=== PATIENT | female | born 1955 | race African-American/Black ===

== ENCOUNTER 2016-11-27 00:16 | Inpatient (IN) | payer OTHER ==
--- NOTE | 2016-11-27 00:57 | PDOC ---
History of Present Illness - General History Source: Patient <Jose Jose - Last Filed: 11/27/16 05:01> - General History Source: Patient Exam Limitations: No Limitations - History of Present Illness Initial Comments: 11/27/16 01:08 The patient is a 61 year old female with significant past medical history of anemia, mitral valve prolapse, and seizures who presents to the ED for less than 24 hours of abdominal pain. Patient reports eating chipotle around 1pm and subsequently developed pain to the epigastric area with associated nausea, but no vomiting or diarrhea. The patient denies fever, chills, cough, SOB, chest pain, and palpitations. Allergies: NKDA Social History: No alcohol, tobacco, or drug use reported. Past Surgical History: L rotator cuff repair PCP: Dr. Trupti Womack <Phyllis Tidwell - Last Filed: 11/27/16 05:03> - General Chief Complaint: Pain Stated Complaint: CHEST PAIN Time Seen by Provider: 11/27/16 00:48 Past History - Past Medical History Anemia: Yes (PERNICIOUS) Cardiac Disorders: Yes (MVP) GI Disorders: Yes (HIATAL HERNIA) Seizures: Yes (02/2010) - Surgical History Orthopedic Surgery: Yes (LT ROTATOR CUFF 06/2014) - Immunization History Immunization Up to Date: Yes - Psycho/Social/Smoking Cessation Hx Anxiety: No Suicidal Ideation: No Smoking History: Never smoked Have you smoked in the past 12 months: No Information on smoking cessation initiated: No Hx Alcohol Use: No Drug/Substance Use Hx: No Substance Use Type: None <Jose Jose - Last Filed: 11/27/16 05:01> <Phyllis Tidwell - Last Filed: 11/27/16 05:03> - Past Medical History Allergies/Adverse Reactions: Allergies Allergy/AdvReac Type Severity Reaction Status Date / Time No Known Allergies Allergy Verified 11/27/16 00:46 Home Medications: Ambulatory Orders Ondansetron [Zofran *Odt*] 4 mg SL TID #30 od.tablet 11/27/16 Oxycodone HCl/Acetaminophen [Percocet 5-325 mg Tablet] 1 - 2 tab PO Q6H #20 tablet MDD 4 11/27/16 Pantoprazole Sodium [Protonix] 40 mg PO DAILY #30 tablet. 11/27/16 Review of Systems - Review of Systems Able to Perform ROS?: Yes Comments:: 11/27/16 01:08 CONSTITUTIONAL: Absent: fever, no chills, no fatigue EYES: Absent: visual changes ENT: Absent: ear pain, no sore throat CARDIOVASCULAR: Absent: chest pain, no palpitations RESPIRATORY: Absent: cough, no SOB GI: +epigastric pain, nausea Absent: no vomiting, no constipation, no diarrhea GENITOURINARY: Absent: dysuria, no frequency, no hematuria MUSCULOSKELETAL: Absent: back pain, no arthralgia, no myalgia SKIN: Absent: rash NEURO: Absent: headache <Phyllis Tidwell - Last Filed: 11/27/16 05:03> *Physical Exam - Vital Signs Last Vital Signs Temp Pulse Resp BP Pulse Ox 97.5 F L 80 18 159/74 98 11/27/16 00:46 11/27/16 00:46 11/27/16 00:46 11/27/16 00:46 11/27/16 00:46 <Jose Jose - Last Filed: 11/27/16 05:01> - Vital Signs Last Vital Signs Temp Pulse Resp BP Pulse Ox 97.5 F L 80 18 159/74 98 11/27/16 00:46 11/27/16 00:46 11/27/16 00:46 11/27/16 00:46 11/27/16 00:46 - Physical Exam Comments: 11/27/16 01:08 GENERAL: Well-appearing, well-nourished. Moderate distress. HEENT: Normocephalic, atraumatic. PERRL, EOM intact. CARDIOVASCULAR: Normal S1, S2. Regular rate and rhythm. PULMONARY: Clear to auscultation bilaterally. ABDOMEN: Soft, non-distended, non-tender. EXTREMITIES: Normal ROM in all four extremities. No gross deformities. SKIN: Warm, dry. No rash NEUROLOGICAL: No focal neurological deficits. <Phyllis Tidwell - Last Filed: 11/27/16 05:03> Heart Score/ECG Review - ECG Impressions Comment:: 11/27/16 01:08 NSR @79bpm Possible L atrial enlargement L ventricular hypertrophy Prolonged QT Abnormal ECG <Phyllis Tidwell - Last Filed: 11/27/16 05:03> ED Treatment Course - LABORATORY CBC & Chemistry Diagram: 11/27/16 02:03 11/27/16 02:03 <Jose Jose - Last Filed: 11/27/16 05:01> - LABORATORY CBC & Chemistry Diagram: 11/27/16 02:03 11/27/16 02:03 - RADIOLOGY Radiograph Interpretation: 11/27/16 05:02 EXAM: CT abdomen and pelvis without contrast Reviewed by Imaging ironworker: FINDINGS: Lung bases are clear. The visualized cardiac chambers are normal size and configuration. Gallbladder is distended and contains multiple stones, including an 8 mm stone in the cystic duct. There may be mild pericholecystic edema and cholecystitis is suspected. No biliary duct dilation. Normal unenhanced liver, pancreas, spleen, adrenal glands and kidneys. The stomach and abdominal small and large bowel are normal. There is no aortic aneurysm. There is no significant retroperitoneal lymphadenopathy. The pelvic small and large bowel are normal. The appendix is normal. The uterus and adnexal structures are normal. Urinary bladder is unremarkable. There is no pelvic free fluid. No discrete pelvic lymphadenopathy is identified. IMPRESSION: Suspected acute cholecystitis secondary to an 8 mm cystic duct stone. <Phyllis Tidwell - Last Filed: 11/27/16 05:03> Medical Decision Making - Medical Decision Making 11/27/16 02:55 Dr. Jose: The scribe's documentation has been prepared under my direction and personally reviewed by me in its entirery. I confirm that the note above accurately reflects all work, treatment, procedures, and medical decision making performed by me. 11/27/16 05:01 patient found to have acute cholecystitis on abdomen pelvis CAT scan. Will admit to [facility]. <Jose Jose - Last Filed: 11/27/16 05:01> *DC/Admit/Observation/Transfer - Discharge Dispostion Admit: Yes <Jose Jose - Last Filed: 11/27/16 05:01> - Attestations Scribe Attestion: 11/27/16 01:08 Documentation prepared by Phyllis Tidwell, acting as medical surgery nurse for Jose Jose MD/DO. <Phyllis Tidwell - Last Filed: 11/27/16 05:03> Diagnosis at time of Disposition: Acute cholecystitis - Prescriptions Prescriptions: Oxycodone HCl/Acetaminophen [Percocet 5-325 mg Tablet] 1 - 2 tab PO Q6H #20 tablet MDD 4 Pantoprazole Sodium [Protonix] 40 mg PO DAILY #30 tablet. Ondansetron [Zofran *Odt*] 4 mg SL TID #30 od.tablet - Referrals Referrals: Sarah Womack [Primary Care Provider] -
[2016-11-27] MEDS ORDERED: KETOROLAC TROMETHAMINE 30 MG/1 ML VIAL IVPUSH ONE (00:58)
[2016-11-27] MEDS ORDERED: PANTOPRAZOLE SODIUM 40 MG in SODIUM CHLORIDE 100 ML IVPB ONE (00:58)
[2016-11-27] MEDS ORDERED: ONDANSETRON 4 MG/2 ML VIAL IVPUSH STA ×2 (00:58→03:00)
[2016-11-27] MEDS ORDERED: SODIUM CHLORIDE 1,000 ML IV STA (00:58)
[2016-11-27] MEDS ORDERED: KETOROLAC TROMETHAMINE 30 MG/1 ML VIAL ONE (01:51)
[2016-11-27] MEDS ORDERED: ONDANSETRON 4 MG/2 ML VIAL ONE ×2 (01:51→03:04)
[2016-11-27] MEDS ORDERED: PANTOPRAZOLE SODIUM 100 ML IVPB ONE (01:51)
[2016-11-27 02:10] LABS: BASOPHIL 0.3 % (0-2.0); EOSINOPHIL 0.2 % (0-4.5); MCH 30.9 pg (25.7-33.7); MEAN CELL VOLUME 96.6 fl (80-96); MEAN PLT VOLUME 9.8 fl (7.5-11.1); NEUTROPHILS 84.3 % (42.8-82.8); PLATELET COUNT 228 K/MM3 (134-434); RDW 14.9 % (11.6-15.6); WHITE BLOOD COUNT 6.3 K/mm3 (4.0-10.0)
[2016-11-27 02:26] LABS: PLATELET COMMENT2 NO CLUMPING NOTED; PLATELET COMMENT3 NO CLOTTING DETECTED; PLATELET ESTIMATE ADEQUATE (NORMAL)
[2016-11-27 02:39] LABS: ALBUMIN 3.7 g/dl (3.4-5.0); AMYLASE 23 U/L (25-115); ANION GAP 13 (8-16); BILIRUBIN,TOTAL 0.7 mg/dL (0.2-1.0); CO2 24 mmol/L (21-32); CREATININE 0.6 mg/dL (0.55-1.02); GLUCOSE,RANDOM 104 mg/dL (74-106); SGOT/AST 59 U/L (15-37); SGPT/ALT 126 U/L (12-78); TOT PROT 7.8 g/dl (6.4-8.2)
[2016-11-27 02:42] LABS: ALK PHOS 136 U/L (45-117); TROPONIN I < 0.02 ng/ml (0.00-0.05)
[2016-11-27 02:53] LABS: MAGNESIUM 2.3 mg/dL (1.8-2.4)
[2016-11-27] MEDS ORDERED: morphine CARPU-JECT 2 MG/1 ML DISP.SYRIN IVPUSH ONE ×3 (03:00→04:57)
[2016-11-27] MEDS ORDERED: morphine CARPU-JECT 2 MG/1 ML DISP.SYRIN ONE (03:03)
[2016-11-27 03:08] LABS: URINE APPEARANCE CLEAR; URINE BILIRUBIN NEGATIVE (NEGATIVE); URINE COLOR YELLOW; URINE GLUCOSE (UA) NEGATIVE (NEGATIVE); URINE KETONE 2+ (NEGATIVE); URINE NITRITE NEGATIVE (NEGATIVE); URINE PROTEIN NEGATIVE (NEGATIVE); URINE UROBILINOGEN 4.0 E.U/dl E.U./dl (0.2-1.0)
[2016-11-27 03:10] LABS: URINE BLOOD 1+ (NEGATIVE); URINE LEUK ESTERASE 1+ (NEGATIVE)
[2016-11-27 03:14] LABS: URINE BACTERIA RARE /hpf (NONE SEEN); URINE MUCUS RARE; URINE RBC 8 /hpf (0-3); URINE WBC 8 /hpf (3-5)
[2016-11-27] MEDS ORDERED: morphine CARPU-JECT 4 MG/1 ML DISP.SYRIN ONE ×2 (03:41→05:03)
[2016-11-27] MEDS ORDERED: METRONIDAZOLE 500 MG PREMIXED 100 ML IVPB ONE ×2 (04:58→05:03)
[2016-11-27] MEDS ORDERED: LEVOFLOXACIN 500 MG IVPB 100 ML IVPB ONE ×2 (04:58→05:03)
--- NOTE | 2016-11-27 05:16 | PN ---
Teaching Attending Note Name of Resident: Angel Crawford ATTENDING PHYSICIAN STATEMENT I saw and evaluated the patient. I reviewed the resident's note and discussed the case with the resident. I agree with the resident's findings and plan as documented. SUBJECTIVE: 61 yo F with pmhx of anemia, MVP, and seizures presents with abdominal pain. States she is occasionally nausaus, no vomiting or diarrhea. No chest pain, pressure or shortness of breath. OBJECTIVE: Physical: VS: Vital Signs Period Temp Pulse Resp BP Sys/Tucker Pulse Ox Last 24 Hr 97.5 F 80 18 159/74 98 GEN: NAD, Resting in bed HEENT: NCAT, PERRL CARD: RRR S1, S2 RESP: CTAB ABD: BSX4, ntd to palpation EXT: - C/C/E CBCD WBC 6.3 K/mm3 (4.0-10.0) 11/27/16 02:03 RBC 4.06 M/mm3 (3.60-5.2) 11/27/16 02:03 Hgb 12.5 GM/dL (10.7-15.3) 11/27/16 02:03 Hct 39.2 % (32.4-45.2) 11/27/16 02:03 MCV 96.6 fl (80-96) H 11/27/16 02:03 MCHC 32.0 g/dl (32.0-36.0) 11/27/16 02:03 RDW 14.9 % (11.6-15.6) 11/27/16 02:03 Plt Count 228 K/MM3 (134-434) 11/27/16 02:03 MPV 9.8 fl (7.5-11.1) 11/27/16 02:03 CMP Sodium 142 mmol/L (136-145) 11/27/16 02:03 Potassium 3.8 mmol/L (3.5-5.1) 11/27/16 02:03 Chloride 105 mmol/L (98-107) 11/27/16 02:03 Carbon Dioxide 24 mmol/L (21-32) 11/27/16 02:03 Anion Gap 13 (8-16) 11/27/16 02:03 BUN 10 mg/dL (7-18) 11/27/16 02:03 Creatinine 0.6 mg/dL (0.55-1.02) 11/27/16 02:03 Creat Clearance w eGFR > 60 (>60) 11/27/16 02:03 Random Glucose 104 mg/dL (74-106) 11/27/16 02:03 Calcium 9.0 mg/dL (8.5-10.1) 11/27/16 02:03 Total Bilirubin 0.7 mg/dL (0.2-1.0) 11/27/16 02:03 AST 59 U/L (15-37) H 11/27/16 02:03 ALT 126 U/L (12-78) H 11/27/16 02:03 Alkaline Phosphatase 136 U/L (45-117) H 11/27/16 02:03 Total Protein 7.8 g/dl (6.4-8.2) 11/27/16 02:03 Albumin 3.7 g/dl (3.4-5.0) 11/27/16 02:03 CARDIAC ENZYMES Creatine Kinase 156 IU/L (26-192) 11/27/16 02:03 Troponin I < 0.02 ng/ml (0.00-0.05) 11/27/16 02:03 CT ABD/PELVIS: Acute Choleycystitis 8 mm stone ASSESSMENT AND PLAN: 61 yo F with pmhx of Seizures, pernicous anemia, and MVP presents with abdominal pain, found to have increased lefts and acute choley with 8mm cystic stone on CT 1.) Acute Choleycystitis- Choledcholithiasis - NPO - IVF/Pain control - Type and Screen - Coags - C/W abx Levaquin/Fagyl (received in ED)-would switch to Ceftriaxone in light of mildly increased Qtc - Cx - Consider MRCP in light of elevated LFts - Sx. Consult 2.) Transaminitis - MRCP 3.) DVt Ppz - Low Risk- SCDs Place in Med-Sx
--- NOTE | 2016-11-27 05:50 | HP ---
CHIEF COMPLAINT: abdominal pain PCP: Sarah Womack HISTORY OF PRESENT ILLNESS: 61 y/o F w/PMH of anemia, mitral valve prolapse, seizures presents to ER w/ c/o abdominal pain. Pain is located in epigastric region, radiates to LUQ, was sudden in onset after eating chipotle and frozen yogurt for lunch. Pain was 10/ 10, constant, w/no alleviating factors, associated with nausea, vomiting (4 episodes, non-bloody, non-bilious), chills. This is the first time pt has had this type of pain. Pt states approximately 5 years ago on routine physical exam/ blood work she was told she may have gallstones but no work up was required at that time. She denies fevers, chest pain, cough, diarrhea, peripheral swelling, sick contacts, recent travel. ER course was notable for: (1) levaquin, metronidazole, zofran, ct abd/pelvis (2) (3) Recent Travel: denies PAST MEDICAL HISTORY: anemia, mitral valve prolapse, seizures PAST SURGICAL HISTORY: 2 c-sections, L rotator cuff repair Social History: Smoking: denies Alcohol: denies Drugs: denies Family History: non-contributory Allergies No Known Allergies Allergy (Verified 11/27/16 00:46) HOME MEDICATIONS: Home Medications Medication Instructions Recorded Ondansetron [Zofran *Odt*] 4 mg SL TID #30 od.tablet 11/27/16 Oxycodone HCl/Acetaminophen 1 - 2 tab PO Q6H #20 tablet MDD 4 11/27/16 [Percocet 5-325 mg Tablet] Pantoprazole Sodium [Protonix] 40 mg PO DAILY #30 tablet. 11/27/16 REVIEW OF SYSTEMS CONSTITUTIONAL: +chills Absent: fever, diaphoresis, generalized weakness CARDIOVASCULAR: Absent: chest pain, syncope, palpitations, irregular heart rate, peripheral edema RESPIRATORY: Absent: cough, shortness of breath, dyspnea with exertion GASTROINTESTINAL: +abdominal pain, nausea, vomiting Absent: abdominal distension, diarrhea, constipation, melena, hematochezia GENITOURINARY: Absent: dysuria, frequency MUSCULOSKELETAL: Absent: myalgia, arthralgia, joint swelling, back pain, neck pain NEUROLOGIC: +lightheadedness Absent: headache, focal weakness or paresthesias, mental status changes PSYCHIATRIC: Absent: anxiety, depression PHYSICAL EXAMINATION Vital Signs - 24 hr 11/27/16 00:46 Temperature 97.5 F L Pulse Rate 80 Respiratory 18 Rate Blood Pressure 159/74 O2 Sat by Pulse 98 Oximetry (%) GENERAL: Awake, alert, and fully oriented, in no acute distress. HEAD: Normal with no signs of trauma. EYES:extraocular movements intact, sclera anicteric, conjunctiva clear. No lid lag. EARS, NOSE, THROAT: Ears normal, nares patent NECK: Normal range of motion, supple without lymphadenopathy LUNGS: Breath sounds equal, clear to auscultation bilaterally. No wheezes, and no crackles. No accessory muscle use. HEART: Regular rate and rhythm, normal S1 and S2 without murmur, rub or gallop. ABDOMEN: +RUQ tenderness, +murphys sign, Soft, not distended, normoactive bowel sounds, no guarding, no rebound, no masses. MUSCULOSKELETAL: No bony deformities. No CVA tenderness. LOWER EXTREMITIES: warm, well-perfused. No calf tenderness. No peripheral edema. NEUROLOGICAL: Normal speech. Gait not observed. PSYCHIATRIC: Cooperative. Good eye contact. Appropriate mood and affect. SKIN: Warm, dry, normal turgor Laboratory Results - last 24 hr 11/27/16 11/27/16 11/27/16 02:03 02:03 02:03 WBC 6.3 RBC 4.06 Hgb 12.5 Hct 39.2 MCV 96.6 H MCHC 32.0 RDW 14.9 Plt Count 228 MPV 9.8 Neutrophils % 84.3 H Lymphocytes % 12.6 Monocytes % 2.6 L Eosinophils % 0.2 Basophils % 0.3 Platelet Estimate Adequate Platelet Comment No clumping noted INR 1.00 Sodium 142 Potassium 3.8 Chloride 105 Carbon Dioxide 24 Anion Gap 13 BUN 10 Creatinine 0.6 Creat Clearance w eGFR > 60 Random Glucose 104 Calcium 9.0 Magnesium Total Bilirubin 0.7 AST 59 H ALT 126 H Alkaline Phosphatase 136 H Creatine Kinase 156 CK-MB (CK-2) 1.694 Troponin I < 0.02 Total Protein 7.8 Albumin 3.7 Total Amylase 23 L Lipase Urine Color Urine Appearance Urine pH Urine Protein Urine Glucose (UA) Urine Ketones Urine Blood Urine Nitrite Urine Bilirubin Urine Urobilinogen Ur Leukocyte Esterase Urine RBC Urine WBC Ur Epithelial Cells Urine Bacteria Urine Mucus 11/27/16 11/27/16 02:03 03:00 WBC RBC Hgb Hct MCV MCHC RDW Plt Count MPV Neutrophils % Lymphocytes % Monocytes % Eosinophils % Basophils % Platelet Estimate Platelet Comment INR Sodium Potassium Chloride Carbon Dioxide Anion Gap BUN Creatinine Creat Clearance w eGFR Random Glucose Calcium Magnesium 2.3 Total Bilirubin AST ALT Alkaline Phosphatase Creatine Kinase CK-MB (CK-2) Troponin I Total Protein Albumin Total Amylase Lipase 94 Urine Color Yellow Urine Appearance Clear Urine pH 6.0 Urine Protein Negative Urine Glucose (UA) Negative Urine Ketones 2+ H Urine Blood 1+ H Urine Nitrite Negative Urine Bilirubin Negative Urine Urobilinogen 4.0 e.u/dl H Ur Leukocyte Esterase 1+ H Urine RBC 8 Urine WBC 8 Ur Epithelial Cells Rare Urine Bacteria Rare Urine Mucus Rare EKG: NSR @ 79 bpm. Possible L atrial enlargement. LVH. Prolonged QTc 481. Imaging: EXAM: CT abdomen and pelvis without contrast Reviewed by Imaging sec reporting consultant: FINDINGS: Lung bases are clear. The visualized cardiac chambers are normal size and configuration. Gallbladder is distended and contains multiple stones, including an 8 mm stone in the cystic duct. There may be mild pericholecystic edema and cholecystitis is suspected. No biliary duct dilation. Normal unenhanced liver, pancreas, spleen, adrenal glands and kidneys. The stomach and abdominal small and large bowel are normal. There is no aortic aneurysm. There is no significant retroperitoneal lymphadenopathy. The pelvic small and large bowel are normal. The appendix is normal. The uterus and adnexal structures are normal. Urinary bladder is unremarkable. There is no pelvic free fluid. No discrete pelvic lymphadenopathy is identified. IMPRESSION: Suspected acute cholecystitis secondary to an 8 mm cystic duct stone. ASSESSMENT/PLAN: 61 y/o F w/PMH of anemia, mitral valve prolapse, seizures presents to ER w/ c/o abdominal pain. Found to have acute cholecystitis secondary to 8 mm cystic duct stone. -Acute cholecystitis -NPO, NS @ 125 ml/hr -Pain control with morphine 2mg q6h PRN -Nausea control with compazine 10 mg IV q8h PRN (pt with prolonged QTc) -metronidazole 500 mg iv q8h -ceftriaxone 1g qd starting tomorrow, as pt on levaquin at this time (will also change due to prolonged QTc) -GI consulted -Surgery consulted -consider MRCP -monitor LFTs, elevated at this time -Transaminitis -monitor, elevated at this time -secondary to acute cholecystitis -consider MRCP -Hx of anemia -Hgb 12.5, monitor -DVT ppx -SCDs -FEN -NS @ 125 ml/hr -electrolytes wnl -NPO -Dispo: -Admit to m/s Visit type - Emergency Visit Emergency Visit: Yes ED Registration Date: 11/27/16 Care time: The patient presented to the Emergency Department on the above date and was hospitalized for further evaluation of their emergent condition. - New Patient This patient is new to me today: Yes Date on this admission: 12/02/16 - Critical Care Critical Care patient: No
[2016-11-27] MEDS ORDERED: morphine CARPU-JECT 4 MG/1 ML DISP.SYRIN IVPUSH PRN (06:14)
[2016-11-27] MEDS: SODIUM CHLORIDE 1,000 ML IV SCH ×2 (07:25→17:14)
[2016-11-27] MEDS: PROCHLORPERAZINE INJECTION 10 MG/2 ML VIAL IVPB PRN ×2 (07:56→19:03)
[2016-11-27] MEDS: METRONIDAZOLE 500 MG PREMIXED 100 ML IVPB SCH ×2 (11:20→19:42)
--- NOTE | 2016-11-27 12:35 | EKG ---
Test Reason : Blood Pressure : / mmHG Vent. Rate : 079 BPM Atrial Rate : 079 BPM P-R Int : 142 ms QRS Dur : 088 ms QT Int : 420 ms P-R-T Axes : 075 051 035 degrees QTc Int : 481 ms NORMAL SINUS RHYTHM POSSIBLE LEFT ATRIAL ENLARGEMENT LEFT VENTRICULAR HYPERTROPHY PROLONGED QT ABNORMAL ECG WHEN COMPARED WITH ECG OF 16-AUG-2015 10:31, NO SIGNIFICANT CHANGE WAS FOUND Confirmed by ARNALDO GIL, MARK ([id number]) on 11/27/2016 12:35:15 PM Referred By: Confirmed By:MARK MCINTOSH MD
--- NOTE | 2016-11-27 14:02 | PN ---
Teaching Attending Note Name of Resident: Louie Pires ATTENDING PHYSICIAN STATEMENT I saw and evaluated the patient. I reviewed the resident's note and discussed the case with the resident. I agree with the resident's findings and plan as documented. SUBJECTIVE: Patient complains of RUQ abdominal pain. She denies fever, chills, nausea. OBJECTIVE: Vital Signs Period Temp Pulse Resp BP Sys/Tucker Pulse Ox Last 24 Hr 97.5 F-98.1 F 80-88 18-18 107-159/56-74 97-99 HEART: S1S2, RRR LUNGS: Clear ABDOMEN: Obese, soft, non-distended, (+) RUQ tenderness, normal BS EXTREMITIES: No edema ASSESSMENT AND PLAN: This is a 61 year old woman with a history of seizures, pernicious anemia, MVP who presented to the ER with abdominal pain. 1. Acute choleycystitis - Continue NPO, IVF, Rocephin, Flagyl, morphine as needed for pain, Compazine as needed for nausea - AST, ALT, alk phos improving - Awaiting GI and surgery consults 2. Hepatic transaminitis - Likely secondary to acute cholecystitis - Improving - MRCP ordered
[2016-11-27] MEDS: morphine CARPU-JECT 4 MG/1 ML DISP.SYRIN IVPUSH PRN ×2 (14:26→18:33)
[2016-11-27 14:36] VITALS: BMI 32.5
--- NOTE | 2016-11-27 15:29 | PN ---
Physical Exam: SUBJECTIVE: Constant epigastric pain but improved after morphine a while ago. She stated pain is coming back and asking for morphine. No acute event overnight. OBJECTIVE: Vital Signs Period Temp Pulse Resp BP Sys/Tucker Pulse Ox Last 24 Hr 97.5 F-98.1 F 81-88 18-18 107-120/56-59 97-99 GENERAL: AAO x 3 in no acute distress. LUNGS: CTAB HEART: RRR, S1, S2 without murmur, rub or gallop. ABDOMEN: Soft, epigastric tenderness, nondistended, normoactive bowel sounds, no guarding, no rebound, +artis's sign EXTREMITIES: no edema. CBCD WBC 6.3 K/mm3 (4.0-10.0) 11/27/16 02:03 RBC 4.06 M/mm3 (3.60-5.2) 11/27/16 02:03 Hgb 12.5 GM/dL (10.7-15.3) 11/27/16 02:03 Hct 39.2 % (32.4-45.2) 11/27/16 02:03 MCV 96.6 fl (80-96) H 11/27/16 02:03 MCHC 32.0 g/dl (32.0-36.0) 11/27/16 02:03 RDW 14.9 % (11.6-15.6) 11/27/16 02:03 Plt Count 228 K/MM3 (134-434) 11/27/16 02:03 MPV 9.8 fl (7.5-11.1) 11/27/16 02:03 CMP Sodium 142 mmol/L (136-145) 11/27/16 02:03 Potassium 3.8 mmol/L (3.5-5.1) 11/27/16 02:03 Chloride 105 mmol/L (98-107) 11/27/16 02:03 Carbon Dioxide 24 mmol/L (21-32) 11/27/16 02:03 Anion Gap 13 (8-16) 11/27/16 02:03 BUN 10 mg/dL (7-18) 11/27/16 02:03 Creatinine 0.6 mg/dL (0.55-1.02) 11/27/16 02:03 Creat Clearance w eGFR > 60 (>60) 11/27/16 02:03 Calcium 9.0 mg/dL (8.5-10.1) 11/27/16 02:03 Total Bilirubin 0.7 mg/dL (0.2-1.0) 11/27/16 02:03 AST 59 U/L (15-37) H 11/27/16 02:03 ALT 126 U/L (12-78) H 11/27/16 02:03 Alkaline Phosphatase 136 U/L (45-117) H 11/27/16 02:03 Total Protein 7.8 g/dl (6.4-8.2) 11/27/16 02:03 Albumin 3.7 g/dl (3.4-5.0) 11/27/16 02:03 Intake & Output 11/24/16 11/25/16 11/26/16 11/27/16 23:59 23:59 23:59 23:59 Weight 90.276 kg Active Medications Generic Name Dose Route Start Last Admin Trade Name Freq PRN Reason Stop Dose Admin Ceftriaxone Sodium 50 mls @ 100 mls/hr 11/28/16 10:00 Rocephin 1gm Ivpb (Pre-Docked) IVPB DAILY TOM Metronidazole 100 mls @ 100 mls/hr 11/27/16 10:00 11/27/16 11:20 Flagyl 500mg Premixed Ivpb - IVPB 100 mls/hr Q8H-IV TOM Administration Sodium Chloride 1,000 mls @ 125 mls/hr 11/27/16 06:15 11/27/16 07:25 Normal Saline - IV 125 mls/hr ASDIR TOM Administration Morphine Sulfate 2 mg 11/27/16 13:57 11/27/16 14:26 Morphine Injection - IVPUSH 2 mg Q4H PRN Administration PAIN Prochlorperazine Edisylate 10 mg 11/27/16 06:24 11/27/16 07:56 Compazine Injection - IVPB 10 mg Q8H PRN Administration NAUSEA AND/OR VOMITING IMAGING CT abd on 11/27: gallbladder stones and possible acute cholecystitis CXR on 11/27: no acute pathology ASSESSMENT/PLAN: 61 yo F admitted to med-surg for acute cholecysitis r/o choledoliathesis. Acute calculous cholecystitis, uncomplicated - Mild-moderate community acquired acute cholecystitis - Received flagyl + levaquin in ED - On flagyl + ceftriaxone * would de-escalade to cefazolin only - NPO, IV fluids, correct lytes as needed - Morphine 2mg Q4H PRN for pain control - Surgery onboard Transaminitis - AST, ALT, alko phos mildly elevated - Suspected CBD pathology - f/u MRCP * if CBD obstruction, ERCP before cholecystectomy FEN -NS @ 125 ml/hr -Normal lytes -NPO Prophylaxis - DVT: SCDs - GI: not indicated Dispo - Cholecystectomy scheduled on Friday if no CBD pathology and transaminitis resolves Visit type - Emergency Visit Emergency Visit: No - New Patient This patient is new to me today: No - Critical Care Critical Care patient: No
--- NOTE | 2016-11-27 16:36 | PN ---
Progress Note (short form) - Note Progress Note: Consult dictated 61F with suspected acute cholecystitis Suspect LFT abnormality secondary to acute cholecystitis with cystic duct obstruction IV Abx NPO Surgical evaluation MRCP ordered. If rising bilirubin suggestive of CBD obstruction / MRCP findings suggestive of choledocholithiasis, ERCP prior to EGD
[2016-11-27 17:41] LABS: BASOPHIL 0.3 % (0-2.0); MCHC 31.7 g/dl (32.0-36.0); MEAN CELL VOLUME 97.8 fl (80-96); MEAN PLT VOLUME 9.1 fl (7.5-11.1); NEUTROPHILS 83.5 % (42.8-82.8); PLATELET COUNT 232 K/MM3 (134-434); RDW 15.6 % (11.6-15.6); WHITE BLOOD COUNT 8.3 K/mm3 (4.0-10.0)
--- NOTE | 2016-11-27 17:44 | PN ---
Progress Note (short form) - Note Progress Note: surgery pt seen and examined this afternoon. full consult dictated. 61f presents with epigastric pain, vomiting since yesterday after eating chipoltle. found to have multiple gallstones on CT with one at the neck of gb. ast, alt, and alk phos mildly elevated. On exam abd is soft, nt. wbc wbl. Plan- acute cholecystitis vs choledocholithiasis. for mrcp. repeat labs tomorrow. further recommendations to follow. Agree with rocephin/flagyl.
[2016-11-27 18:21] LABS: ALBUMIN 3.1 g/dl (3.4-5.0); ALK PHOS 128 U/L (45-117); ANION GAP 12 (8-16); BILIRUBIN,TOTAL 0.8 mg/dL (0.2-1.0); CALCIUM 8.4 mg/dL (8.5-10.1); CO2 23 mmol/L (21-32); CREATININE 0.6 mg/dL (0.55-1.02); GLUCOSE,RANDOM 78 mg/dL (74-106); SGOT/AST 48 U/L (15-37); SGPT/ALT 108 U/L (12-78)
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
[2016-11-28] MEDS: morphine CARPU-JECT 4 MG/1 ML DISP.SYRIN IVPUSH PRN ×3 (00:18→08:29)
--- NOTE | 2016-11-28 00:36 | CONS ---
DATE OF CONSULTATION: 11/27/2016 REASON FOR CONSULTATION: Acute cholecystitis, cholelithiasis. This is an inpatient consultation. BRIEF HISTORY: This is a 61-year-old female who presented to [facility] complaining of epigastric pain, nausea, and vomiting since eating from [employer]. She also had yogurt at the time as well. Because of this persistent pain, she came to the [facility] Emergency Room where she had a CT scan of her abdomen and pelvis, which showed a distended gallbladder with multiple radiopaque gallstones and 1 possibly impacted in the neck. Her common bile duct was normal size. She was noted to have mildly elevated transaminases with an ALT of 59 and AST of 126. Alkaline phosphatase was 136. She was admitted and started on Rocephin and Flagyl antibiotics. A request was made for surgical evaluation. PAST MEDICAL HISTORY: Significant for a valvular heart disease, not requiring treatment or surgery. She has history of a seizure disorder. SOCIAL HISTORY: Negative for alcohol and negative for tobacco. FAMILY HISTORY: Negative for malignancy in the immediate family. ALLERGIES: No known drug allergies. MEDICATIONS: She takes no medications. PAST SURGICAL HISTORY: Includes 2 sections. REVIEW OF SYSTEMS: General: Denies fatigue or malaise. Cardiac: Denies chest pain or palpitations. Respiratory: Denies shortness of breath or wheeze. Gastrointestinal: As in HPI. Currently she is not nauseous and no longer vomiting. She denies diarrhea, denies blood in her stool, denies recent weight loss. Genitourinary: Denies dysuria. Musculoskeletal: Denies joint pain or joint swelling. Psychiatric: Denies hearing pressuring voices. PHYSICAL EXAMINATION: General: This is an obese, 61-year-old female, in no distress. Vital signs: She is afebrile. Her vital signs are stable. HEENT: Head is normocephalic. Sclerae are anicteric. Neck: Supple. Chest: Clear. Abdomen: Soft, nontender. She has no surgical scars above her umbilicus. She has no obvious hernias. Extremities: No edema. LABORATORY: White blood cell count is normal at 6.3, but there is a shift of 84% neutrophils. Her chemistries show, as stated in the HPI, her amylase and lipase are normal. Her imaging is as stated in the HPI. ASSESSMENT: This is a 61-year-old female who presents with severe onset of epigastric abdominal pain, nausea, and vomiting after eating fast food. She has a small spike in her liver function test and a CT scan consistent with multiple gallstones and possibly 1 obstructing the cystic duct. Patient either has acute cholecystitis despite the normal white blood cell count, or she possibly has a stone in her common bile duct that may have already passed. I recommend MRCP to better evaluate the common bile duct. I also will repeat the liver function tests tomorrow. I agree with Ronaldo and Shiraz to cover Escherichia coli and other biliary-related sudheer as well as gram-negative sudheer. Based on findings from the MRCP and repeat liver function tests, we will make further recommendations regarding cholecystectomy. Patient is currently nontoxic. Her abdominal examination is benign. DO SANTOS PLASCENCIA/[id number]
[2016-11-28] MEDS: METRONIDAZOLE 500 MG PREMIXED 100 ML IVPB SCH ×3 (02:08→17:32)
[2016-11-28 05:56] LABS: MCH 31.5 pg (25.7-33.7); MCHC 32.6 g/dl (32.0-36.0); MEAN CELL VOLUME 96.5 fl (80-96); PLATELET COUNT 232 K/MM3 (134-434); RDW 15.1 % (11.6-15.6); WHITE BLOOD COUNT 10.8 K/mm3 (4.0-10.0)
[2016-11-28 06:25] LABS: ANION GAP 9 (8-16); BILIRUBIN,DIRECT 0.3 mg/dL (0.0-0.2); CALCIUM 8.3 mg/dL (8.5-10.1); CO2 23 mmol/L (21-32); CREATININE 0.6 mg/dL (0.55-1.02); GLUCOSE,RANDOM 107 mg/dL (74-106); SGOT/AST 34 U/L (15-37); SGPT/ALT 87 U/L (12-78)
[2016-11-28 06:27] LABS: ALK PHOS 116 U/L (45-117); BILIRUBIN,TOTAL 0.9 mg/dL (0.2-1.0); TOT PROT 6.7 g/dl (6.4-8.2)
[2016-11-28] MEDS: SODIUM CHLORIDE 1,000 ML IV SCH ×3 (07:29→16:36)
[2016-11-28] MEDS ORDERED: CEFTRIAXONE 50 ML IVPB SCH (10:00)
--- NOTE | 2016-11-28 11:08 | PN ---
Teaching Attending Note Name of Resident: Louie Pires ATTENDING PHYSICIAN STATEMENT I saw and evaluated the patient. I reviewed the resident's note and discussed the case with the resident. I agree with the resident's findings and plan as documented. SUBJECTIVE: Patient still having RUQ abdominal pain. OBJECTIVE: Vital Signs Period Temp Pulse Resp BP Sys/Tucker Pulse Ox Last 24 Hr 97.4 F-99.1 F 78-89 18-18 125-143/59-72 96 HEART: S1S2, RRR LUNGS: Clear ABDOMEN: Obese, soft, non-distended, (+) RUQ tenderness, normal BS EXTREMITIES: No edema ASSESSMENT AND PLAN: This is a 61 year old woman with a history of seizures, pernicious anemia, MVP who presented to the ER with abdominal pain. 1. Acute choleycystitis - Continue NPO, IVF, Rocephin, Flagyl, morphine as needed for pain, Compazine as needed for nausea - AST, ALT, alk phos improved further - MRCP shows acute cholecystitis and no evidence of choledocholithiasis - Lap giovany today 2. Hepatic transaminitis - Likely secondary to acute cholecystitis - Improving - MRCP negative for choledocholithiasis 3. Obesity with BMI 32.6
[2016-11-28] MEDS ORDERED: IBUPROFEN 800 MG/8 ML IJ IVPB PRN ×2 (11:09→14:16)
[2016-11-28] MEDS ORDERED: ACETAMINOPHEN 1000 MG/100 ML VIAL (NON FORMULARY) IVPB PRN ×2 (11:10→14:16)
[2016-11-28] MEDS ORDERED: PROPOFOL 20 ML ONE (11:28)
[2016-11-28] MEDS ORDERED: MIDAZOLAM HCL 2 MG/2 ML SINGLE DOSE VIAL ONE (11:28)
[2016-11-28] MEDS ORDERED: DEXAMETHASONE SOD PHOSPHATE 4 MG/1 ML VIAL ONE (11:28)
[2016-11-28] MEDS ORDERED: ACETAMINOPHEN 325 MG TABLET (FP) PO PRN (11:29)
--- NOTE | 2016-11-28 11:33 | OP ---
Operative Note - Note: Operative Date: 11/28/16 Pre-Operative Diagnosis: acute cholecystitis, cholelithiasis Operation: laparoscopic cholecystectomy, lavage Findings: inflamed gb, distended, absent cystic duct Post-Operative Diagnosis: Same as Pre-op Surgeon: Cortez Quintana Physician Neonatology: Jarod Keenan Anesthesiologist/ELECTRONIC EQUIPMENT INSTALLER: Kika Encarnacion Anesthesia: General Specimens Removed: gb Estimated Blood Loss (mls): 50 Drains & Tubes with Location: cassie hepatic fossa
[2016-11-28] MEDS ORDERED: ROCURONIUM BROMIDE 50 MG/5 ML VIAL ONE (12:01)
[2016-11-28] MEDS ORDERED: GLYCOPYRROLATE 0.2 MG/1 ML VIAL ONE (12:08)
[2016-11-28] MEDS ORDERED: NEOSTIGMINE METHYLSULFATE 0.5 MG/ML - 10 ML MDV ONE (12:08)
--- NOTE | 2016-11-28 13:27 | PN ---
Physical Exam: SUBJECTIVE: Patient seen at 10am. c/o RUQ pain under control with pain med. Informed by nurse that she's going to OR at 1pm. No acute event overnight. OBJECTIVE: Vital Signs Period Temp Pulse Resp BP Sys/Tucker Pulse Ox Last 24 Hr 97.4 F-99.1 F 78-89 18-18 125-143/59-79 96 GENERAL: AAO x 3 in no acute distress. LUNGS: CTAB HEART: RRR, S1, S2 without murmur, rub or gallop. ABDOMEN: Soft, epigastric tenderness, nondistended, normoactive bowel sounds, no guarding, no rebound, +artis's sign EXTREMITIES: no edema. CBCD WBC 10.8 K/mm3 (4.0-10.0) H D 11/28/16 05:35 RBC 3.70 M/mm3 (3.60-5.2) 11/28/16 05:35 Hgb 11.6 GM/dL (10.7-15.3) 11/28/16 05:35 Hct 35.7 % (32.4-45.2) 11/28/16 05:35 MCV 96.5 fl (80-96) H 11/28/16 05:35 MCHC 32.6 g/dl (32.0-36.0) 11/28/16 05:35 RDW 15.1 % (11.6-15.6) 11/28/16 05:35 Plt Count 232 K/MM3 (134-434) 11/28/16 05:35 MPV 9.0 fl (7.5-11.1) 11/28/16 05:35 CMP Sodium 142 mmol/L (136-145) 11/28/16 05:35 Potassium 3.4 mmol/L (3.5-5.1) L 11/28/16 05:35 Chloride 110 mmol/L (98-107) H 11/28/16 05:35 Carbon Dioxide 23 mmol/L (21-32) 11/28/16 05:35 Anion Gap 9 (8-16) 11/28/16 05:35 BUN 8 mg/dL (7-18) 11/28/16 05:35 Creatinine 0.6 mg/dL (0.55-1.02) 11/28/16 05:35 Creat Clearance w eGFR > 60 (>60) 11/28/16 05:35 Calcium 8.3 mg/dL (8.5-10.1) L 11/28/16 05:35 Total Bilirubin 0.9 mg/dL (0.2-1.0) 11/28/16 05:35 AST 34 U/L (15-37) D 11/28/16 05:35 ALT 87 U/L (12-78) H 11/28/16 05:35 Alkaline Phosphatase 116 U/L (45-117) 11/28/16 05:35 Total Protein 6.7 g/dl (6.4-8.2) 11/28/16 05:35 Albumin 3.0 g/dl (3.4-5.0) L 11/28/16 05:35 Active Medications Generic Name Dose Route Start Last Admin Trade Name Freq PRN Reason Stop Dose Admin Acetaminophen 1,000 mg 11/28/16 11:10 Ofirmev Injection - IVPB 11/29/16 05:11 Q6H PRN FEVER OR PAIN Acetaminophen 650 mg 11/28/16 11:29 Tylenol - PO Q4H PRN FEVER OR PAIN Enoxaparin Sodium 40 mg 11/29/16 10:00 Lovenox - SQ DAILY TOM Fentanyl 50 mcg 11/28/16 11:09 Sublimaze Injection - IVPUSH 12/01/16 11:10 [id number] PRN PAIN Ceftriaxone Sodium 50 mls @ 100 mls/hr 11/28/16 10:00 11/28/16 10:41 Rocephin 1gm Ivpb (Pre-Docked) IVPB 100 mls/hr DAILY TOM Administration Metronidazole 100 mls @ 100 mls/hr 11/27/16 10:00 11/28/16 09:16 Flagyl 500mg Premixed Ivpb - IVPB 100 mls/hr Q8H-IV TOM Administration Sodium Chloride 1,000 mls @ 125 mls/hr 11/27/16 06:15 11/28/16 07:29 Normal Saline - IV 125 mls/hr ASDIR TOM Administration Pantoprazole Sodium 100 mls @ 200 mls/hr 11/29/16 10:00 Protonix 40mg Ivpb (Pre-Docked) IVPB DAILY TOM Ibuprofen 800 mg 11/28/16 11:09 Caldolor Injection - IVPB Q6H PRN PAIN Morphine Sulfate 2 mg 11/27/16 13:57 11/28/16 08:29 Morphine Injection - IVPUSH 2 mg Q4H PRN Administration PAIN Morphine Sulfate 4 mg 11/28/16 11:29 Morphine Injection - IVPB Q3H PRN MODERATE PAIN Ondansetron HCl 4 mg 11/28/16 11:29 Zofran Injection IVPB Q6H PRN NAUSEA Oxycodone HCl 7.5 mg 11/28/16 11:29 Roxicodone - PO Q4H PRN PAIN Prochlorperazine Edisylate 10 mg 11/27/16 06:24 11/27/16 19:03 Compazine Injection - IVPB 10 mg Q8H PRN Administration NAUSEA AND/OR VOMITING Microbiology 11/27/16 05:10 Blood Culture - Preliminary Blood - Peripheral Venous Pending Organism 11/27/16 05:10 Blood Culture - Preliminary Blood - Peripheral Venous NO GROWTH OBTAINED AFTER 24 HOURS, INCUBATION TO CONTINUE FOR [address] abd on 11/27: gallbladder stones and possible acute cholecystitis CXR on 11/27: no acute pathology MRCP on 11/28: acute cholecystitis, negative for choledolithiasis ASSESSMENT/PLAN: 61 yo F admitted to med-surg for acute cholecysitis r/o choledoliathesis. Acute calculous cholecystitis, uncomplicated - Cholecystectomy scheduled today - d/c abx tomorrow - Caldolor 800mg Q6H PRN and morphine 2mg Q4H PRN for pain control - Spoke to lab regarding cultures * gram stain showed gram+ in clusters * 1 out of 4 bottles * coagulase +/- unknown at this time Transaminitis - Resolved - Negative MRCP for CBD pathology FEN -IVF not indicated -Normal lytes -Regular diet Prophylaxis - DVT: lovenox - GI: protonix Dispo - Discharge tomorrow Visit type - Emergency Visit Emergency Visit: No - New Patient This patient is new to me today: No - Critical Care Critical Care patient: No
[2016-11-28] MEDS ORDERED: PROCHLORPERAZINE INJECTION 10 MG/2 ML VIAL IVPB PRN (14:16)
[2016-11-28] MEDS ORDERED: ACETAMINOPHEN INJECTION 100 ML IVPB ONE (15:13)
[2016-11-28] MEDS: morphine CARPU-JECT 4 MG/1 ML DISP.SYRIN IVPB PRN (21:47)
[2016-11-29] MEDS: METRONIDAZOLE 500 MG PREMIXED 100 ML IVPB SCH ×3 (01:36→18:45)
[2016-11-29] MEDS: morphine CARPU-JECT 4 MG/1 ML DISP.SYRIN IVPB PRN ×2 (04:51→09:01)
[2016-11-29 07:04] LABS: MCHC 33.1 g/dl (32.0-36.0); MEAN CELL VOLUME 96.7 fl (80-96); PLATELET COUNT 208 K/MM3 (134-434); RDW 15.1 % (11.6-15.6); WHITE BLOOD COUNT 12.4 K/mm3 (4.0-10.0)
[2016-11-29 07:28] LABS: ALBUMIN 2.4 g/dl (3.4-5.0); ANION GAP 9 (8-16); CO2 26 mmol/L (21-32); GLUCOSE,RANDOM 92 mg/dL (74-106)
[2016-11-29 07:33] LABS: ALK PHOS 89 U/L (45-117); BILIRUBIN,TOTAL 0.8 mg/dL (0.2-1.0); CALCIUM 8.3 mg/dL (8.5-10.1); CREATININE 0.6 mg/dL (0.55-1.02); SGOT/AST 27 U/L (15-37); SGPT/ALT 68 U/L (12-78); TOT PROT 6.1 g/dl (6.4-8.2)
--- NOTE | 2016-11-29 08:35 | PN ---
Progress Note (short form) - Note Progress Note: Anesthesia POD#1 S/P LAP cholecystectomy under GA AAO times 3,VSS,Started liquids,mild nausea.pain is under control except mild tenderness. Neck is soar, i explained her the reason & spontaneous recovery. No complications seen Kika Encarnacion MD.
[2016-11-29] MEDS: ENOXAPARIN NA (PORCINE) 40 MG/0.4 ML DISP.SYRIN SQ SCH (10:02)
[2016-11-29] MEDS: CEFTRIAXONE 50 ML IVPB SCH (11:40)
--- NOTE | 2016-11-29 11:54 | OP ---
DATE OF OPERATION: 11/28/2016 PREOPERATIVE DIAGNOSIS: Acute cholecystitis, cholelithiasis. POSTOPERATIVE DIAGNOSIS: Acute cholecystitis, cholelithiasis. PROCEDURE: Laparoscopic cholecystectomy and lavage. SURGEON: Cortez Quintana DO ORNAMENTAL METAL ERECTOR APPRENTICE: Jarod Keenan M.D. ANESTHESIOLOGIST: Kika Encarnacion MD (general) INTRAOPERATIVE FINDINGS: A distended, chronically and acutely inflamed gallbladder with either a very short or absent cystic duct with significant gallbladder edema. BLOOD LOSS: 50 mL. SPECIMENS: Gallbladder. DRAINS: Roland-Chatterjee drain in the hepatic fossa. DISPOSITION: To the recovery room in stable condition. BRIEF HISTORY: This is a 61-year-old female who presented to [facility] with signs and symptoms of acute cholecystitis. She also had mildly elevated liver function tests, which returned to normal and had a negative MRCP. She had a CAT scan of her abdomen and pelvis, which was consistent with gallstones and acute cholecystitis. She presents now for surgery. The patient was already on Rocephin and Flagyl. PROCEDURE: The patient was placed in the supine position after general anesthesia was initiated. The abdomen was prepped and draped in sterile fashion. A transverse incision was made infraumbilical with scalpel used to go through the skin and subcutaneous tissue. The fascia was then lifted with Karissa clamps. Veress needle was inserted and pneumoperitoneum was created. Next an 11-mm trocar was placed followed by insertion of a 10-mm 30-degree laparoscope. There was a ventral hernia above this incision, which was not addressed. Next, an additional 11-mm trocar was placed subxiphoid and two 5-mm trocars were placed in the right upper quadrant of 1 midclavicular line and 1 anterior axillary line. At this point, attention was turned toward the gallbladder. It was pale, distended, and edematous consistent with acute cholecystitis. Veress needle decompression was done in order to enable grasping of the gallbladder. After the gallbladder was emptied, it was lifted cephalad. The infundibulum was retracted laterally. There were dense adhesions of initially the duodenum and then inflammatory tissue to the inferior portion of the gallbladder. This was carefully teased down to what appeared to be the common bile duct. The gallbladder appeared to taper into a densely adhesed major structure, which was assumed to be the common bile duct. At this point, either there was no cystic duct or it was intimately associated with the common bile duct and therefore the decision was made to divide the gallbladder at its inferior portion of the infundibulum. This was done with a PEGGY endoscopic stapler device. After the stapler was fired and cut, 3 rows of sonja remained. However, they did not have good integrity likely to significant sludge and gravel in the inferior portion of the gallbladder. Therefore a running 3-0 silk suture was done laparoscopically and secured back to itself and tied. This was adequate with no leakage of bile. The infundibulum stump was completely closed. The common bile duct was not involved in this maneuver. Next, the gallbladder was liberated from the liver bed using electrocautery. It was removed through the infraumbilical trocar site in a specimen bag. A significant fascial incisional lengthening was required in order to deliver such a large gallbladder filled with so many stones and debris. Next, a vigorous lavage was done and all return was clear. A Roland-Chatterjee drain was placed next to the closed cuff of infundibulum. There was no bleeding noted. This was brought out through the lateral trocar site and secured with a silk drain stitch. Of note, an additional 5-mm trocar was placed also midclavicular line in order to assist with the sewing. Next, the trocars were removed under direct visualization. No bleeding was seen. Pneumoperitoneum was released. The fascia at the infraumbilical trocar site was then closed with multiple interrupted 0 Vicryl sutures as well as the subxiphoid trocar site. The 4 remaining skin incisions were closed with Biosyn and Dermabond dressing was placed. Overall, the patient tolerated the procedure well and there were no complications. The patient's disposition was to go to the floor where she would continue antibiotics and await return of bowel function. DO SANTOS PLASCENCIA/[id number] MTDD
[2016-11-29] MEDS: SODIUM CHLORIDE 1,000 ML IV SCH (12:00)
[2016-11-29] MEDS: PANTOPRAZOLE SODIUM 100 ML IVPB SCH (12:23)
--- NOTE | 2016-11-29 12:37 | PN ---
Teaching Attending Note Name of Resident: Louie Pires ATTENDING PHYSICIAN STATEMENT I saw and evaluated the patient. I reviewed the resident's note and discussed the case with the resident. I agree with the resident's findings and plan as documented. SUBJECTIVE: Patient complains of RUQ pain. OBJECTIVE: Vital Signs Period Temp Pulse Resp BP Sys/Tucker Pulse Ox Last 24 Hr 98.2 F-99.3 F 80-100 14-22 108-154/51-76 95-100 HEART: S1S2, RRR LUNGS: Clear ABDOMEN: Obese, soft, non-distended, (+) RUQ tenderness, normal BS EXTREMITIES: No edema ASSESSMENT AND PLAN: This is a 61 year old woman with a history of seizures, pernicious anemia, MVP who presented to the ER with abdominal pain. 1. Acute choleycystitis - s/p lap giovany and lavage 11/28 - Has JIMI drain in hepatic fossa - Continue Rocephin, Flagyl 2. Hepatic transaminitis - Likely secondary to acute cholecystitis - Resolved 3. Obesity with BMI 32.6
--- NOTE | 2016-11-29 12:52 | PN ---
Progress Note (short form) - Note Progress Note: surgery pt seen and examined. oob. to chair. tolerating some clear liquids. voiding. feels better than before surgery afebrile abd- soft, mild distension, expected ruq tenderness, incisions clean, cassie sero- sanguinous A/P 1) Pod#1- will advance to low fat diet for dinner. stop ivf when tolerating fluid. cont casise 2) acute cholecystitis- cont iv abx, cont cassie, follow path 3) prophylaxis- lovenox, protonix, oob, spirometer 4) likely d/c tomorrow if tolerating diet, and remains afebrile. would give 5 days augmentin 875bid. f/u next week for drain removal. [phone]. ok to shower. 2 weeks off work. no lifting.
--- NOTE | 2016-11-29 13:19 | PN ---
Physical Exam: SUBJECTIVE: Patient stated she still has some RUQ pain but it's under control with pain med. No bowel movement yet. Voiding. No fever, chills, chest pain, shortness of breath, n/v. OBJECTIVE: Vital Signs Period Temp Pulse Resp BP Sys/Tucker Pulse Ox Last 24 Hr 98.2 F-99.3 F 80-100 14-22 108-154/51-76 95-100 GENERAL: AAO x 3 in no acute distress. LUNGS: CTAB HEART: RRR, S1, S2 without murmur, rub or gallop. ABDOMEN: Soft, mild RUQ tenderness, nondistended, normoactive bowel sounds, no guarding, no rebound EXTREMITIES: no edema. CBCD WBC 12.4 K/mm3 (4.0-10.0) H 11/29/16 06:20 RBC 3.62 M/mm3 (3.60-5.2) 11/29/16 06:20 Hgb 11.6 GM/dL (10.7-15.3) 11/29/16 06:20 Hct 35.0 % (32.4-45.2) 11/29/16 06:20 MCV 96.7 fl (80-96) H 11/29/16 06:20 MCHC 33.1 g/dl (32.0-36.0) 11/29/16 06:20 RDW 15.1 % (11.6-15.6) 11/29/16 06:20 Plt Count 208 K/MM3 (134-434) 11/29/16 06:20 MPV 9.0 fl (7.5-11.1) 11/29/16 06:20 CMP Sodium 145 mmol/L (136-145) 11/29/16 06:20 Potassium 3.6 mmol/L (3.5-5.1) 11/29/16 06:20 Chloride 110 mmol/L (98-107) H 11/29/16 06:20 Carbon Dioxide 26 mmol/L (21-32) 11/29/16 06:20 Anion Gap 9 (8-16) 11/29/16 06:20 BUN 9 mg/dL (7-18) 11/29/16 06:20 Creatinine 0.6 mg/dL (0.55-1.02) 11/29/16 06:20 Creat Clearance w eGFR > 60 (>60) 11/29/16 06:20 Calcium 8.3 mg/dL (8.5-10.1) L 11/29/16 06:20 Total Bilirubin 0.8 mg/dL (0.2-1.0) 11/29/16 06:20 AST 27 U/L (15-37) D 11/29/16 06:20 ALT 68 U/L (12-78) D 11/29/16 06:20 Alkaline Phosphatase 89 U/L (45-117) D 11/29/16 06:20 Total Protein 6.1 g/dl (6.4-8.2) L 11/29/16 06:20 Albumin 2.4 g/dl (3.4-5.0) L 11/29/16 06:20 Intake & Output 11/26/16 11/27/16 11/28/16 11/29/16 23:59 23:59 23:59 23:59 Intake Total 1400 3525 1775 Output Total 372 480 Balance 1400 3153 1295 Weight 90.276 kg Active Medications Generic Name Dose Route Start Last Admin Trade Name Freq PRN Reason Stop Dose Admin Acetaminophen 650 mg 11/28/16 11:29 Tylenol - PO Q4H PRN FEVER OR PAIN Enoxaparin Sodium 40 mg 11/29/16 10:00 11/29/16 10:02 Lovenox - SQ 40 mg DAILY TOM Administration Pantoprazole Sodium 100 mls @ 200 mls/hr 11/29/16 10:00 11/29/16 12:23 Protonix 40mg Ivpb (Pre-Docked) IVPB 200 mls/hr DAILY TOM Administration Ceftriaxone Sodium 50 mls @ 100 mls/hr 11/29/16 10:00 11/29/16 11:40 Rocephin 1gm Ivpb (Pre-Docked) IVPB 100 mls/hr DAILY TOM Administration Metronidazole 100 mls @ 100 mls/hr 11/28/16 18:00 11/29/16 10:01 Flagyl 500mg Premixed Ivpb - IVPB 100 mls/hr Q8H-IV TOM Administration Sodium Chloride 1,000 mls @ 75 mls/hr 11/29/16 10:20 Normal Saline - IV ASDIR TOM Ibuprofen 800 mg 11/28/16 14:16 Caldolor Injection - IVPB Q6H PRN PAIN Morphine Sulfate 4 mg 11/28/16 11:29 11/29/16 09:01 Morphine Injection - IVPB 4 mg Q3H PRN Administration MODERATE PAIN Ondansetron HCl 4 mg 11/28/16 11:29 Zofran Injection IVPB Q6H PRN NAUSEA Oxycodone HCl 7.5 mg 11/28/16 11:29 Roxicodone - PO Q4H PRN PAIN Prochlorperazine Edisylate 10 mg 11/28/16 14:16 Compazine Injection - IVPB Q8H PRN NAUSEA AND/OR VOMITING Microbiology 11/27/16 05:10 Blood Culture - Preliminary Blood - Peripheral Venous Staphylococcus Coagulase Neg 11/27/16 05:10 Blood Culture - Preliminary Blood - Peripheral Venous NO GROWTH OBTAINED AFTER 48 HOURS, INCUBATION TO CONTINUE FOR [address] abd on 11/27: gallbladder stones and possible acute cholecystitis CXR on 11/27: no acute pathology MRCP on 11/28: acute cholecystitis, negative for choledolithiasis ASSESSMENT/PLAN: 61 yo F admitted to med-surg for acute cholecysitis. Acute calculous cholecystitis - s/p cholecystectomy with JIMI drain placed, post op day 1 - Cont. current abx per surgery * d/c on augmentin 875mg BID x 5 days - Advance diet to low fat - Caldolor 800mg Q6H PRN and morphine 2mg Q4H PRN for pain control - Culture grew coagulase negative staph - mostly contaminant Transaminitis - Resolved FEN -Decreased IVF to 42cc/hr -Normal lytes -Low fat diet Prophylaxis - DVT: lovenox - GI: protonix Dispo - Discharge tomorrow Visit type - Emergency Visit Emergency Visit: No - New Patient This patient is new to me today: No - Critical Care Critical Care patient: No
[2016-11-30] MEDS: morphine CARPU-JECT 4 MG/1 ML DISP.SYRIN IVPB PRN ×2 (00:06→05:42)
[2016-11-30] MEDS: METRONIDAZOLE 500 MG PREMIXED 100 ML IVPB SCH ×3 (01:32→18:58)
[2016-11-30] MEDS: SODIUM CHLORIDE 1,000 ML IV SCH (05:43)
[2016-11-30 06:59] LABS: MCHC 33.4 g/dl (32.0-36.0); MEAN CELL VOLUME 95.9 fl (80-96); MEAN PLT VOLUME 8.8 fl (7.5-11.1); PLATELET COUNT 205 K/MM3 (134-434); WHITE BLOOD COUNT 9.4 K/mm3 (4.0-10.0)
--- NOTE | 2016-11-30 09:02 | PN ---
Physical Exam: SUBJECTIVE: Patient seen and examined. She feels very weak. She is not eating much and has not had BM since surgery. OBJECTIVE: Vital Signs Period Temp Pulse Resp BP Sys/Tucker Pulse Ox Last 24 Hr 98.4 F-99.1 F 88-105 16-20 102-140/46-80 95-95 GENERAL: The patient is awake, alert, and fully oriented, in no acute distress. LUNGS: Breath sounds equal, clear to auscultation bilaterally, no wheezes, no crackles, no accessory muscle use. HEART: Regular rhythm, tachycardic, S1, S2 without murmur, rub or gallop. ABDOMEN: Soft, (+) RUQ tenderness, nondistended, hypoactive bowel sounds, no guarding, no rebound, no hepatosplenomegaly, no masses. EXTREMITIES: 2+ pulses, warm, well-perfused, no edema. Laboratory Results - last 24 hr 11/30/16 06:20 WBC 9.4 RBC 3.29 L Hgb 10.6 L Hct 31.6 L MCV 95.9 MCHC 33.4 RDW 15.0 Plt Count 205 MPV 8.8 Active Medications Generic Name Dose Route Start Last Admin Trade Name Freq PRN Reason Stop Dose Admin Acetaminophen 650 mg 11/28/16 11:29 Tylenol - PO Q4H PRN FEVER OR PAIN Enoxaparin Sodium 40 mg 11/29/16 10:00 11/29/16 10:02 Lovenox - SQ 40 mg DAILY TOM Administration Pantoprazole Sodium 100 mls @ 200 mls/hr 11/29/16 10:00 11/29/16 12:23 Protonix 40mg Ivpb (Pre-Docked) IVPB 200 mls/hr DAILY TOM Administration Ceftriaxone Sodium 50 mls @ 100 mls/hr 11/29/16 10:00 11/29/16 11:40 Rocephin 1gm Ivpb (Pre-Docked) IVPB 100 mls/hr DAILY TOM Administration Metronidazole 100 mls @ 100 mls/hr 11/28/16 18:00 11/30/16 01:32 Flagyl 500mg Premixed Ivpb - IVPB 100 mls/hr Q8H-IV TOM Administration Sodium Chloride 1,000 mls @ 75 mls/hr 11/29/16 10:20 11/30/16 05:43 Normal Saline - IV 75 mls/hr ASDIR TOM Administration Ibuprofen 800 mg 11/28/16 14:16 Caldolor Injection - IVPB Q6H PRN PAIN Morphine Sulfate 4 mg 11/28/16 11:29 11/30/16 05:42 Morphine Injection - IVPB 4 mg Q3H PRN Administration MODERATE PAIN Ondansetron HCl 4 mg 11/28/16 11:29 Zofran Injection IVPB Q6H PRN NAUSEA Oxycodone HCl 7.5 mg 11/28/16 11:29 Roxicodone - PO Q4H PRN PAIN Prochlorperazine Edisylate 10 mg 11/28/16 14:16 Compazine Injection - IVPB Q8H PRN NAUSEA AND/OR VOMITING ASSESSMENT/PLAN: This is a 61 year old woman with a history of seizures, pernicious anemia, MVP who presented to the ER with abdominal pain. 1. Acute choleycystitis - s/p lap giovany and lavage 11/28 - Has JIMI drain in hepatic fossa - Continue Rocephin, Flagyl, IV fluid - Ambulate 2. Hepatic transaminitis - Likely secondary to acute cholecystitis - Resolved 3. Hypokalemia - Replete potassium 4. Obesity with BMI 32.6 Visit type - Emergency Visit Emergency Visit: Yes ED Registration Date: 11/27/16 Care time: The patient presented to the Emergency Department on the above date and was hospitalized for further evaluation of their emergent condition. - New Patient This patient is new to me today: No - Critical Care Critical Care patient: No - Discharge Referral Referred to [facility] Med P.C.: No
[2016-11-30 09:44] LABS: CALCIUM 7.7 mg/dL (8.5-10.1); COCKROFT - GAULT 172.652; CREATININE 0.5 mg/dL (0.55-1.02)
[2016-11-30] MEDS: PANTOPRAZOLE SODIUM 100 ML IVPB SCH (10:03)
[2016-11-30] MEDS: ENOXAPARIN NA (PORCINE) 40 MG/0.4 ML DISP.SYRIN SQ SCH (10:03)
[2016-11-30] MEDS: CEFTRIAXONE 50 ML IVPB SCH (10:53)
[2016-11-30] MEDS: oxyCODONE HCL 5 MG TABLET PO PRN ×2 (11:41→17:24)
[2016-11-30] MEDS ORDERED: POTASSIUM CHLORIDE TABS 20 MEQ TABLET.ER (FP) PO ONE (12:21)
--- NOTE | 2016-11-30 13:08 | PN ---
Progress Note (short form) - Note Progress Note: surgery pt seen and examined. ambulating. tolerating some food. doesnt want to go home. afebrile abd- soft, minimal distension, minimal tenderness, incisions clean, cassie sero- sanguinous A/P 1) Pod#2- low fat diet, cont cassie, stop ivf 2) acute cholecystitis- cont iv abx, cont cassie, follow path 3) prophylaxis- lovenox, protonix, oob, spirometer 4) poss d/c tomorrow if tolerating diet, and remains afebrile. would give 5 days augmentin 875bid. f/u next week for drain removal. [phone]. ok to shower. 2 weeks off work. no lifting.
[2016-11-30] MEDS: ONDANSETRON 4 MG/2 ML VIAL IVPB PRN (19:34)
[2016-12-01] MEDS: morphine CARPU-JECT 4 MG/1 ML DISP.SYRIN IVPB PRN (01:00)
[2016-12-01] MEDS: METRONIDAZOLE 500 MG PREMIXED 100 ML IVPB SCH ×3 (03:38→18:12)
[2016-12-01 07:52] LABS: MCHC 33.1 g/dl (32.0-36.0); MEAN CELL VOLUME 96.7 fl (80-96); MEAN PLT VOLUME 8.7 fl (7.5-11.1); PLATELET COUNT 217 K/MM3 (134-434); RDW 15.3 % (11.6-15.6); WHITE BLOOD COUNT 7.3 K/mm3 (4.0-10.0)
[2016-12-01 08:58] LABS: CALCIUM 7.9 mg/dL (8.5-10.1); COCKROFT - GAULT 215.815; CREATININE 0.4 mg/dL (0.55-1.02)
--- NOTE | 2016-12-01 09:42 | PN ---
Physical Exam: SUBJECTIVE: Patient seen and examined. She vomited last night after eating. This morning, she developed abdominal pain after trying to eat potatoes. OBJECTIVE: Vital Signs Period Temp Pulse Resp BP Sys/Tucker Pulse Ox Last 24 Hr 97.9 F-98.8 F 71-102 14-20 97-113/47-67 96 GENERAL: The patient is awake, alert, and fully oriented, in no acute distress. LUNGS: Breath sounds equal, clear to auscultation bilaterally, no wheezes, no crackles, no accessory muscle use. HEART: Regular rate and rhythm, S1, S2 without murmur, rub or gallop. ABDOMEN: Soft, (+) diffuse mild tenderness, nondistended, hypoactive bowel sounds, no guarding, no rebound, no hepatosplenomegaly, no masses. EXTREMITIES: 2+ pulses, warm, well-perfused, no edema. Laboratory Results - last 24 hr 11/30/16 12/01/16 12/01/16 06:20 06:00 06:00 WBC 7.3 RBC 3.14 L Hgb 10.0 L Hct 30.4 L MCV 96.7 H MCHC 33.1 RDW 15.3 Plt Count 217 MPV 8.7 Sodium 142 143 Potassium 3.2 L 3.7 Chloride 108 H 107 Carbon Dioxide 25 27 Anion Gap 9 9 BUN 10 8 Creatinine 0.5 L 0.4 L Random Glucose 79 75 Calcium 7.7 L 7.9 L Active Medications Generic Name Dose Route Start Last Admin Trade Name Freq PRN Reason Stop Dose Admin Acetaminophen 650 mg 11/28/16 11:29 Tylenol - PO Q4H PRN FEVER OR PAIN Enoxaparin Sodium 40 mg 11/29/16 10:00 11/30/16 10:03 Lovenox - SQ 40 mg DAILY TOM Administration Pantoprazole Sodium 100 mls @ 200 mls/hr 11/29/16 10:00 11/30/16 10:03 Protonix 40mg Ivpb (Pre-Docked) IVPB 200 mls/hr DAILY TOM Administration Ceftriaxone Sodium 50 mls @ 100 mls/hr 11/29/16 10:00 11/30/16 10:53 Rocephin 1gm Ivpb (Pre-Docked) IVPB 100 mls/hr DAILY TOM Administration Metronidazole 100 mls @ 100 mls/hr 11/28/16 18:00 12/01/16 03:38 Flagyl 500mg Premixed Ivpb - IVPB 100 mls/hr Q8H-IV TOM Administration Ibuprofen 800 mg 11/28/16 14:16 Caldolor Injection - IVPB Q6H PRN PAIN Morphine Sulfate 4 mg 11/28/16 11:29 12/01/16 01:00 Morphine Injection - IVPB 4 mg Q3H PRN Administration MODERATE PAIN Ondansetron HCl 4 mg 11/28/16 11:29 11/30/16 19:34 Zofran Injection IVPB 4 mg Q6H PRN Administration NAUSEA Oxycodone HCl 7.5 mg 11/28/16 11:29 11/30/16 17:24 Roxicodone - PO 7.5 mg Q4H PRN Administration PAIN Prochlorperazine Edisylate 10 mg 11/28/16 14:16 Compazine Injection - IVPB Q8H PRN NAUSEA AND/OR VOMITING ASSESSMENT/PLAN: This is a 61 year old woman with a history of seizures, pernicious anemia, MVP who presented to the ER with abdominal pain. 1. Acute choleycystitis - s/p lap giovany and lavage 11/28 - Has JIMI drain in hepatic fossa - Continue Rocephin, Flagyl, IV fluid - Ambulate 2. Nausea and vomiting - Abdominal x-rays to r/o ileus 3. Hepatic transaminitis - Likely secondary to acute cholecystitis - Resolved 4. Hypokalemia - Improved 5. Obesity with BMI 32.6 Visit type - Emergency Visit Emergency Visit: Yes ED Registration Date: 11/27/16 Care time: The patient presented to the Emergency Department on the above date and was hospitalized for further evaluation of their emergent condition. - New Patient This patient is new to me today: No - Critical Care Critical Care patient: No - Discharge Referral Referred to [facility] Med P.C.: No
[2016-12-01] MEDS: ENOXAPARIN NA (PORCINE) 40 MG/0.4 ML DISP.SYRIN SQ SCH (10:47)
[2016-12-01] MEDS: CEFTRIAXONE 50 ML IVPB SCH (10:47)
[2016-12-01] MEDS: PANTOPRAZOLE SODIUM 100 ML IVPB SCH (10:47)
--- NOTE | 2016-12-01 12:09 | PN ---
GI Progress Note Subjective: No acute events Some pain at trochar sites States that she vomited food yesterday, placed back on fat controlled diet No BM as of yet - Objective Vital Signs: Vital Signs Temperature 98.8 F 11/30/16 22:00 Pulse Rate 71 11/30/16 22:00 Respiratory Rate 14 11/30/16 22:00 Blood Pressure 102/47 11/30/16 22:00 O2 Sat by Pulse Oximetry (%) 96 11/30/16 21:00 Constitutional: Calm Eyes: No: Sclera Icterus Cardiovascular: Yes: Regular Rate and Rhythm Respiratory: Yes: CTA Bilaterally Gastrointestinal Inspection: Yes: Scars (point tendeness at the healing trochar sites. JIMI drain in RUQ with serosanguinous drainage) ...Auscultate: Yes: Normoactive Bowel Sounds ...Palpate: Yes: Tenderness (as above) ...Percussion: No: Tympanitic Labs: CBC, BMP 12/01/16 06:00 12/01/16 06:00 INR, PTT INR 1.00 (0.82-1.09) 11/27/16 02:03 Hepatic Panel Total Bilirubin 0.8 mg/dL (0.2-1.0) 11/29/16 06:20 Direct Bilirubin 0.3 mg/dL (0.0-0.2) H 11/28/16 05:35 AST 27 U/L (15-37) D 11/29/16 06:20 ALT 68 U/L (12-78) D 11/29/16 06:20 Alkaline Phosphatase 89 U/L (45-117) D 11/29/16 06:20 Albumin 2.4 g/dl (3.4-5.0) L 11/29/16 06:20 Problem List - Problems (1) Acute cholecystitis Assessment/Plan: Continued post op care per surgery If continued vomiting consider AXR MiraLAX 17g daily Code(s): K81.0 - ACUTE CHOLECYSTITIS
[2016-12-01] MEDS: ONDANSETRON 4 MG/2 ML VIAL IVPB PRN (21:14)
[2016-12-02] MEDS: METRONIDAZOLE 500 MG PREMIXED 100 ML IVPB SCH ×3 (01:30→18:03)
[2016-12-02 08:22] LABS: MCH 31.5 pg (25.7-33.7); MCHC 32.9 g/dl (32.0-36.0); MEAN CELL VOLUME 95.7 fl (80-96); MEAN PLT VOLUME 8.5 fl (7.5-11.1); PLATELET COUNT 275 K/MM3 (134-434); RDW 15.1 % (11.6-15.6); WHITE BLOOD COUNT 6.2 K/mm3 (4.0-10.0)
[2016-12-02 08:45] LABS: ANION GAP 11 (8-16); CALCIUM 8.4 mg/dL (8.5-10.1); CO2 27 mmol/L (21-32); CREATININE 0.5 mg/dL (0.55-1.02); GLUCOSE,RANDOM 80 mg/dL (74-106)
[2016-12-02] MEDS ORDERED: PT OWN MED DRAWER 7, Y5N ONE ×2 (08:45→15:14)
[2016-12-02] MEDS: CEFTRIAXONE 50 ML IVPB SCH (09:10)
[2016-12-02] MEDS: POLYETHYLENE GLYCOL 3350 119 GM BTL PO SCH (09:10)
[2016-12-02] MEDS: ENOXAPARIN NA (PORCINE) 40 MG/0.4 ML DISP.SYRIN SQ SCH (09:10)
--- NOTE | 2016-12-02 09:30 | PN ---
Teaching Attending Note Name of Resident: Louie Pires ATTENDING PHYSICIAN STATEMENT I saw and evaluated the patient. I reviewed the resident's note and discussed the case with the resident. I agree with the resident's findings and plan as documented. SUBJECTIVE: Patient continues to complain of abdominal pain. She has not had a BM yet. OBJECTIVE: Vital Signs Period Temp Pulse Resp BP Sys/Tucker Pulse Ox Last 24 Hr 98 F-98.6 F 80-91 18-18 113-136/49-77 97 HEART: S1S2, RRR LUNGS: Clear ABDOMEN: Obese, soft, (+) RUQ/epigastric tenderness, non-distended, hypoactive BS EXTREMITIES: No edema ASSESSMENT AND PLAN: This is a 61 year old woman with a history of seizures, pernicious anemia, MVP who presented to the ER with abdominal pain. 1. Acute choleycystitis - s/p lap giovany and lavage 11/28 - Has JIMI drain in hepatic fossa - Continue Rocephin, Flagyl, IV fluid - Ambulate 2. Nausea and vomiting - X-rays show two calcifications in RUQ, ? stones - RUQ US - Check lipase, LFTs 3. Hepatic transaminitis - Likely secondary to acute cholecystitis - Resolved 4. Hypokalemia - Improved 5. Obesity with BMI 32.6
[2016-12-02 09:53] LABS: ALBUMIN 2.4 g/dl (3.4-5.0); SGOT/AST 14 U/L (15-37); SGPT/ALT 35 U/L (12-78)
[2016-12-02 09:55] LABS: ALK PHOS 79 U/L (45-117); BILIRUBIN,TOTAL 0.8 mg/dL (0.2-1.0); TOT PROT 6.2 g/dl (6.4-8.2)
[2016-12-02] MEDS ORDERED: INSULIN (NOVOLOG) ASPART 100 UNITS/ML 10ML VIAL ONE (10:56)
--- NOTE | 2016-12-02 11:59 | PN ---
Physical Exam: SUBJECTIVE: Patient states she's feeling a bit better but still having pain in RUQ. No fever , chills, sob or chest pain. No bowel movement yet, passing little gas, appetite still poor. OBJECTIVE: Vital Signs Period Temp Pulse Resp BP Sys/Tucker Pulse Ox Last 24 Hr 98 F-98.6 F 81-91 18-18 113-136/49-77 97 GENERAL: AAO x 3 in no acute distress. LUNGS: CTAB HEART: RRR, S1, S2 without murmur, rub or gallop. ABDOMEN: Soft, diffuse tenderness more prominent in RUQ, nondistended, hypoactive bowel sounds, guarding, no rebound EXTREMITIES: no edema. CBCD WBC 6.2 K/mm3 (4.0-10.0) 12/02/16 07:15 RBC 3.44 M/mm3 (3.60-5.2) L 12/02/16 07:15 Hgb 10.8 GM/dL (10.7-15.3) 12/02/16 07:15 Hct 33.0 % (32.4-45.2) 12/02/16 07:15 MCV 95.7 fl (80-96) 12/02/16 07:15 MCHC 32.9 g/dl (32.0-36.0) 12/02/16 07:15 RDW 15.1 % (11.6-15.6) 12/02/16 07:15 Plt Count 275 K/MM3 (134-434) D 12/02/16 07:15 MPV 8.5 fl (7.5-11.1) 12/02/16 07:15 CMP Sodium 143 mmol/L (136-145) 12/02/16 07:15 Potassium 3.5 mmol/L (3.5-5.1) 12/02/16 07:15 Chloride 105 mmol/L (98-107) 12/02/16 07:15 Carbon Dioxide 27 mmol/L (21-32) 12/02/16 07:15 Anion Gap 11 (8-16) 12/02/16 07:15 BUN 7 mg/dL (7-18) 12/02/16 07:15 Creatinine 0.5 mg/dL (0.55-1.02) L D 12/02/16 07:15 Creat Clearance w eGFR Y 12/02/16 07:15 Calcium 8.4 mg/dL (8.5-10.1) L 12/02/16 07:15 Total Bilirubin 0.8 mg/dL (0.2-1.0) 12/02/16 07:15 AST 14 U/L (15-37) L D 12/02/16 07:15 ALT 35 U/L (12-78) D 12/02/16 07:15 Alkaline Phosphatase 79 U/L (45-117) 12/02/16 07:15 Total Protein 6.2 g/dl (6.4-8.2) L 12/02/16 07:15 Albumin 2.4 g/dl (3.4-5.0) L 12/02/16 07:15 Intake & Output 11/29/16 11/30/16 12/01/16 12/02/16 23:59 23:59 23:59 23:59 Intake Total 2925 575 900 250 Output Total 520 45 20 20 Balance 2405 530 880 230 Active Medications Generic Name Dose Route Start Last Admin Trade Name Freq PRN Reason Stop Dose Admin Acetaminophen 650 mg 11/28/16 11:29 12/01/16 21:14 Tylenol - PO 650 mg Q4H PRN Administration FEVER OR PAIN Enoxaparin Sodium 40 mg 11/29/16 10:00 12/02/16 09:10 Lovenox - SQ 40 mg DAILY TOM Administration Ceftriaxone Sodium 50 mls @ 100 mls/hr 11/29/16 10:00 12/02/16 09:10 Rocephin 1gm Ivpb (Pre-Docked) IVPB 100 mls/hr DAILY TOM Administration Metronidazole 100 mls @ 100 mls/hr 11/28/16 18:00 12/02/16 09:10 Flagyl 500mg Premixed Ivpb - IVPB 100 mls/hr Q8H-IV TOM Administration Ibuprofen 800 mg 11/28/16 14:16 Caldolor Injection - IVPB Q6H PRN PAIN Ondansetron HCl 4 mg 11/28/16 11:29 12/01/16 21:14 Zofran Injection IVPB 4 mg Q6H PRN Administration NAUSEA Polyethylene Glycol 17 gm 12/02/16 10:00 12/02/16 09:10 Miralax (For Daily Use) - PO 17 gm DAILY TOM Administration Prochlorperazine Edisylate 10 mg 11/28/16 14:16 Compazine Injection - IVPB Q8H PRN NAUSEA AND/OR VOMITING Microbiology 11/27/16 05:10 Blood Culture - Final Blood - Peripheral Venous NO GROWTH AFTER 5 DAYS INCUBATION IMAGING AXR on 12/01: 2 retained stones in RUQ CT abd on 11/27: gallbladder stones and possible acute cholecystitis CXR on 11/27: no acute pathology MRCP on 11/28: acute cholecystitis, negative for choledolithiasis ASSESSMENT/PLAN: 61 yo F admitted to med-surg for acute cholecysitis. RUQ tenderness, s/p cholecystectomy with JIMI drain post op day 4 - Hemodynatically stable - Afrebile, normal LFTs and lipase, no leukocytosis - Likely 2/2 retained stones in abdominal cavity * AXR shows 2 retain stones - f/u RUQ U/S - On rocephin day 4 and flagyl day 5 - Caldolor 800mg Q6H PRN and morphine 2mg Q4H PRN for pain control Transaminitis - Resolved FEN - IVF d/c - Normal lytes - Full liquid diet Prophylaxis - DVT: lovenox - GI: not indicated Dispo - Awaiting GI input and U/S report Visit type - Emergency Visit Emergency Visit: No - New Patient This patient is new to me today: No - Critical Care Critical Care patient: No
--- NOTE | 2016-12-02 12:59 | PATH ---
Surgical Pathology Report Patient Name: OTF VARELA [facility]. Rec. #: [id number] /Age/Gender: 1955 (Age: 61) / F Account: [id number] Location: [address] [place] [address]/[facility] Taken: 11/28/2016 Received: 11/29/2016 Reported: 12/02/2016 Physicians: Cortez Quintana M.D. Specimen(s) Received GALLBLADDER Clinical History Acute cholecystitis, cholelithiasis Final Diagnosis GALLBLADDER, CHOLECYSTECTOMY: ACUTE HEMORRHAGIC AND CHRONIC CHOLECYSTITIS, CHOLELITHIASIS. Electronically Signed René Amor M.D. Gross Description Received in formalin, labeled "gallbladder" is a 10.9 x 3.6 x 3.1 cm gallbladder with a stapled, dilated resection margin. The outer surface is barbosa with a focal defect and varies from smooth to shaggy. The lumen contains black, sludge-like bile as well as numerous black, irregular to fragmented choleliths ranging from 0.1-0.8 cm in greatest dimension. The mucosa is barbosa and eroded. The wall of the gallbladder ranges from 0.1-0.4 cm in thickness. Billet Sawyer sections are submitted in one cassette. 11/29/201611/29/2016
--- NOTE | 2016-12-02 14:17 | PN ---
Progress Note (short form) - Note Progress Note: surgery pt seen and examined. ambulating. vomited on low fat diet but tolerating liquids afebrile abd- soft, non distended, minimal tenderness, incisions clean, cassie sero- sanguinous A/P 1) Pod#2- ileus- liquid diet, cont cassie, stop ivf when tolerating 2) acute cholecystitis- finish abx 3) prophylaxis- lovenox, protonix, oob, spirometer 4) u/s ordered by gi service- would expect complex collection seen in gb fossa and fluid around liver.
[2016-12-03] MEDS: ONDANSETRON 4 MG/2 ML VIAL IVPB PRN (01:33)
[2016-12-03] MEDS ORDERED: KETOROLAC TROMETHAMINE 15 MG/ML VIAL IVPUSH ONE (01:41)
[2016-12-03] MEDS ORDERED: PANTOPRAZOLE SODIUM 40 MG in SODIUM CHLORIDE 100 ML IVPB ONE (01:44)
[2016-12-03] MEDS ORDERED: PANTOPRAZOLE SODIUM 40 MG/100 ML PRE-DOCKED IVPB ONE (02:30)
[2016-12-03] MEDS: METRONIDAZOLE 500 MG PREMIXED 100 ML IVPB SCH ×2 (03:17→10:40)
[2016-12-03] MEDS: CEFTRIAXONE 50 ML IVPB SCH (10:04)
[2016-12-03] MEDS: ENOXAPARIN NA (PORCINE) 40 MG/0.4 ML DISP.SYRIN SQ SCH (10:28)
[2016-12-03] MEDS: POLYETHYLENE GLYCOL 3350 119 GM BTL PO SCH (10:28)
--- NOTE | 2016-12-03 12:06 | PN ---
Physical Exam: SUBJECTIVE: Stated she's concerned with not having bowel movement since the surgery, only passing little gas, and can't keep food down. However, she said she'd continue to try ambulating and soft diet. No fever, chills, sob or chest pain. OBJECTIVE: Vital Signs Period Temp Pulse Resp BP Sys/Tucker Pulse Ox Last 24 Hr 97.8 F-98.7 F 80-85 14-20 120-152/58-97 97 GENERAL: AAO x 3 in no acute distress. LUNGS: CTAB HEART: RRR, S1, S2 without murmur, rub or gallop. ABDOMEN: Soft, diffuse tenderness but more prominent in RUQ, nondistended, normoactive bowel sounds, no guarding, no rebound EXTREMITIES: no edema. Active Medications Generic Name Dose Route Start Last Admin Trade Name Freq PRN Reason Stop Dose Admin Acetaminophen 650 mg 11/28/16 11:29 12/01/16 21:14 Tylenol - PO 650 mg Q4H PRN Administration FEVER OR PAIN Docusate Sodium 100 mg 12/03/16 11:00 Colace - PO BID TOM Enoxaparin Sodium 40 mg 11/29/16 10:00 12/03/16 10:28 Lovenox - SQ 40 mg DAILY TOM Administration Ceftriaxone Sodium 50 mls @ 100 mls/hr 11/29/16 10:00 12/03/16 10:04 Rocephin 1gm Ivpb (Pre-Docked) IVPB 100 mls/hr DAILY TOM Administration Metronidazole 100 mls @ 100 mls/hr 11/28/16 18:00 12/03/16 10:40 Flagyl 500mg Premixed Ivpb - IVPB 100 mls/hr Q8H-IV TOM Administration Ibuprofen 800 mg 11/28/16 14:16 Caldolor Injection - IVPB Q6H PRN PAIN Ondansetron HCl 4 mg 11/28/16 11:29 12/03/16 01:33 Zofran Injection IVPB 4 mg Q6H PRN Administration NAUSEA Polyethylene Glycol 17 gm 12/02/16 10:00 12/03/16 10:28 Miralax (For Daily Use) - PO 17 gm DAILY TOM Administration Prochlorperazine Edisylate 10 mg 11/28/16 14:16 Compazine Injection - IVPB Q8H PRN NAUSEA AND/OR VOMITING Senna 1 tab 12/03/16 11:00 Senna - PO BID TOM IMAGING U/S RUQ on 12/02: unremarkable AXR on 12/01: 2 retained stones in RUQ CT abd on 11/27: gallbladder stones and possible acute cholecystitis CXR on 11/27: no acute pathology MRCP on 11/28: acute cholecystitis, negative for choledolithiasis ASSESSMENT/PLAN: 61 yo F admitted to med-surg for acute cholecysitis. RUQ tenderness, nausea and vomiting, s/p cholecystectomy with JIMI drain post op day 5 - Nausea and vomiting have resolved - Afrebile, normal LFTs and lipase, no leukocytosis - RUQ tenderness likely 2/2 Inflammatory reaction from retained stone in cavity vs. ileus * OOB and cont. ambulation * added senna and colace * advanced to soft diet - On rocephin day 5 and flagyl day 6 - Caldolor 800mg Q6H PRN and morphine 2mg Q4H PRN for pain control Transaminitis - Resolved FEN - IVF d/c - Normal lytes - Soft diet Prophylaxis - DVT: lovenox - GI: not indicated Dispo - May discharge tomorrow if tolerate soft diet Visit type - Emergency Visit Emergency Visit: No - New Patient This patient is new to me today: No - Critical Care Critical Care patient: No
--- NOTE | 2016-12-03 12:31 | PN ---
Progress Note (short form) - Note Progress Note: surgery pt seen and examined. ambulating. tolerated liquids this am. no pain. afebrile abd- soft, non distended, nt, incisions clean, cassie serous u/s unremarkable A/P 1) Pod#3- ileus- improving. consider discharge on liquid diet for 1 week. nausea may be from flagyl as well. 2) acute cholecystitis- can stop iv abx. no need for further abx 3) prophylaxis- oob, spirometer
--- NOTE | 2016-12-03 12:35 | PN ---
Teaching Attending Note Name of Resident: Louie Pires ATTENDING PHYSICIAN STATEMENT I saw and evaluated the patient. I reviewed the resident's note and discussed the case with the resident. I agree with the resident's findings and plan as documented. SUBJECTIVE:states was able to tolerate liquid diet this AM. would like to try soft food prior to going to regular diet. +flatus but no BM since surgery 5 days ago. states abdominal pain has resolved. denies Cp, SOB,fever, chills, N/V OBJECTIVE: Last Vital Signs Temp Pulse Resp BP Pulse Ox 98.3 F 85 18 120/58 97 12/03/16 05:00 12/03/16 05:00 12/03/16 05:00 12/03/16 05:00 12/02/16 21:00 General NAD CV S1 S2 RRR no murmur/rub/gallop Abdomen soft mild tender RUQ on deep palpation. surgical incisions intact with no drainage. hypoactive BS ASSESSMENT AND PLAN: 61 yo F with PMH seizures, pernicious anemia, MVP who presented to the ER with abdominal pain 1. Acute choleycystitis- s/p lap giovany and lavage 11/28 with JIMI drain with serousangenous drainage. slow advancement of diet as was not able to tolerate for several days post-op. finally tolerated liquid diet in the evening and this AM. will advance to soft diet. on Ceftriaxone/flagyl day 7. will d/c on augmentin for additional 5 days. JIMI management per surgery as outpatient. 2. Nausea and vomiting-now resolved. possible due to distention from retained stool vs opiate side effect. now tolerating diet. u/s showing no CBD dilation or acute pathology. advance diet as stated. 3. Constipation- likely from opiates vs poor oral intake. received miralax x1. start stool softeners. should improve as diet advanced and encourage to ambulate 4. Hepatic transaminitis- Likely secondary to acute cholecystitis. resolved 5. Obesity with BMI 32.6 6. d/c home pending tolerated diet. explained to patient in detail
[2016-12-03] MEDS: SENNOSIDES 8.6MG TABLET (FP) PO SCH ×2 (14:26→21:45)
[2016-12-03] MEDS: DOCUSATE SODIUM 100 MG CAPSULE (FP) PO SCH ×2 (14:26→21:45)
[2016-12-04] MEDS: ENOXAPARIN NA (PORCINE) 40 MG/0.4 ML DISP.SYRIN SQ SCH (09:09)
[2016-12-04] MEDS: POLYETHYLENE GLYCOL 3350 119 GM BTL PO SCH (09:09)
[2016-12-04] MEDS: DOCUSATE SODIUM 100 MG CAPSULE (FP) PO SCH (09:09)
[2016-12-04] MEDS: SENNOSIDES 8.6MG TABLET (FP) PO SCH (09:09)
--- NOTE | 2016-12-04 10:56 | PN ---
Teaching Attending Note Name of Resident: Louie Pires ATTENDING PHYSICIAN STATEMENT I saw and evaluated the patient. I reviewed the resident's note and discussed the case with the resident. I agree with the resident's findings and plan as documented. SUBJECTIVE:tolerated dinner and breakfast and ate majority of each meal. no abdominal pain. no BM yet. denies CP, SOB,fever, chills OBJECTIVE: Last Vital Signs Temp Pulse Resp BP Pulse Ox 98.8 F 72 18 132/72 95 12/04/16 06:00 12/04/16 08:50 12/04/16 08:50 12/04/16 08:50 12/03/16 09:00 General NAD CV S1 S2 RRR no murmur/rub/gallop Abdomen soft NT/ND. surgical incisions intact. normoactive BS ASSESSMENT AND PLAN: 61 yo F with PMH seizures, pernicious anemia, MVP who presented to the ER with abdominal pain 1. Acute choleycystitis- s/p lap giovany and lavage 11/28 with JIMI drain with serousangenous drainage. tolerating soft diet. completed 7 days of abx here. as per surgeon does not require any more abx at this time. will f/u surgery as outpatient for drain management. 2. Nausea and vomiting-now resolved. tolerating diet 3. Constipation- likely from opiates vs poor oral intake. on stool softeners. should improve as tolerating diet and more active in getting out of bed. instructed to continue stool softeners until having daily BM. 4. Hepatic transaminitis- Likely secondary to acute cholecystitis. resolved 5. Obesity with BMI 32.6 6. d/c home
[2016-12-04 13:40] VITALS: BP 120/64; PULSE 86; TEMP 98.6
--- NOTE | 2016-12-04 14:44 | DS ---
Physical Exam: SUBJECTIVE: Tolerating soft diet but still no bowel movement. No other complaint. No fever, chills, sob or chest pain. OBJECTIVE: Vital Signs Period Temp Pulse Resp BP Sys/Tucker Pulse Ox Last 24 Hr 98.4 F-98.9 F 72-94 18-20 120-137/60-93 97 PHYSICAL EXAM GENERAL: AAO x 3 in no acute distress. LUNGS: CTAB HEART: RRR, S1, S2 without murmur, rub or gallop. ABDOMEN: Soft, less tender in the RUQ. nondistended, normoactive bowel sounds, no guarding, no rebound EXTREMITIES: no edema. LABS HOSPITAL COURSE: Date of Admission:11/27/16 61 y/o F w/PMH of anemia, mitral valve prolapse, seizures presents to ER w/ c/o abdominal pain. Found to have acute cholecystitis secondary to 8 mm cystic duct stone. CT abd and MRI abd confirm acute cholecystitis and cholecystectomy was performed with JIMI drain placement. After the procedure, she had nausea and vomiting and could not tolerate diet and had no bowel movement and only passing gas. Her n/v were resolved after zofran. She has been afrebile with normal LFTs and lipase and no leukocytosis since surgery. She complained of persistent RUQ tenderness likely due to post-op ileus. She's encouraged to ambulate as tolerated and was put on triple therapy of senna, colace, and miralax for constipation. In addition, patient also completed full course of rocephin and flagyl for her complicated cholecystitis. She's instructed to take senna, colace and miralax as needed for post-op constipation, continue liquid diet for a week, follow up with Dr. Quintana within a week to remove the JIMI drain. Zofran and ibuprofen were also sent to her pharmacy for nausea, vomiting and pain as needed. She's also told to follow up with PMD within a week. Date of Discharge: 12/04/16 Minutes to complete discharge: 35 Discharge Summary Reason For Visit: ACUTE CHOLECYSTITIS Current Active Problems Acute cholecystitis (Acute) Constipation (Acute) Condition: Stable - Instructions Diet, Activity, Other Instructions: Instruction for continuing care: You were admitted to the hospital for acutely inflamed gallbladder. The surgeon removed the gallbladder and placed a drainage bag. It's sometimes common not able to move your bowel or tolerate solid food in the first 2 weeks after the surgery. With plenty of walking, positive attitude, and help of laxatives, the symptoms will resolve eventually. Medically, you are in stable condition to be discharged home. You need to do the following after discharge: 1. Make appointment to see Dr. Quintana ([phone]) to remove the drainage bag next week. 2. Stay on liquid diet for 1 week; if you want to eat more solid food, you could , but go back to liquid food if you feel unwell after eating. 3. Take ibuprofen 600mg as needed for pain; Take zofran as needed if you feel nauseated; take colace, miralax and senna for constipation, you may stop taking the laxatives once you have a consistent bowel movement daily 5. Off work and no heavy lifting for 2 weeks (work note provided). 6. You may resume normal activities and shower as usual. 7. Follow up with your primary care doctor in 1 week Referrals: Jaycob Rodriguez DO [Staff Physician] - Sarah Womack [Primary Care Provider] - Cortez Quintana MD [Staff Physician] - Disposition: HOME - Home Medications Comprehensive Discharge Medication List: Ambulatory Orders Miscellaneous Medical Supply [Outpatient Order] 0 each .ROUTE ASDIR 14 Days 03/09 Pantoprazole Sodium [Protonix] 40 mg PO DAILY #30 tablet. 11/29/16 Docusate Sodium [Colace -] 100 mg PO BID PRN #14 capsule 12/04/16 Ibuprofen 600 mg PO Q6H PRN #24 tablet 12/04/16 Ondansetron [Zofran Odt -] 4 mg SL TID PRN #30 od.tablet 12/04/16 Polyethylene Glycol 3350 [Miralax (For Bowel Prep) -] 17 gm PO DAILY PRN #1 bottle 12/04/16 Sennosides [Senna] 2 tab PO DAILY #14 tablet 12/04/16 This patient is new to me today: No Emergency Visit: No Critical Care patient: No - Discharge Referral Referred to [facility] No
== END 2016-12-04 15:49 | disposition home or self-care (01) | DRG 418 ==
LOC: JER 00:16 → JERBED 05:00 → J5S 07:19
PROVIDERS: ADMIT Internal Medicine; ATTEND Internal Medicine
PROC: 0FT44ZZ Resection of Gallbladder, Percutaneous Endoscopic Approach (ICD-10-PCS; principal; 2016-11-28 10:30)
DX: K80.00 Calculus of gallbladder with acute cholecystitis without obstruction (principal); K91.89 Other postprocedural complications and disorders of digestive system; K56.7 Ileus, unspecified; D64.9 Anemia, unspecified; I34.1 Nonrheumatic mitral (valve) prolapse; R56.9 Unspecified convulsions; R74.0 Nonspecific elevation of levels of transaminase and lactic acid dehydrogenase [LDH]; E87.6 Hypokalemia; K82.8 Other specified diseases of gallbladder; E66.9 Obesity, unspecified; Z68.32 Body mass index [BMI] 32.0-32.9, adult; R11.2 Nausea with vomiting, unspecified; K59.03 Drug induced constipation; T40.605A Adverse effect of unspecified narcotics, initial encounter
CPT/HCPCS: 36415; 71010-TC; 74020-TC; 74176-TC; 74181-TC; 76705-TC; 80048; 80053; 81003; 81015; 82150; 82248; 82550; 82553; 83690; 83735; 84484; 85025; 85027; 85610; 86850; 86900; 86901; 87040; 87186; 88304-TC; 93005; 93010; 94010; 94760; 97116-GP; 99285-25

== ENCOUNTER 2019-05-30 01:42 | Inpatient (IN) | payer BC, OTHER ==
--- NOTE | 2019-05-30 02:22 | PDOC ---
History of Present Illness - General Chief Complaint: Seizure Stated Complaint: SEIZURE Time Seen by Provider: 05/30/19 01:54 History Source: Patient Exam Limitations: No Limitations - History of Present Illness Initial Comments: 05/30/19 02:16 64 yo F with a hx of seizures and HTN presents to the emergency department s/p seizure that occurred at approximately 12:45am. Per the patient, she states she went to bed at approximately 10:45 pm. The patient's family heard "gurgling noises" and came to her bedroom to see her seizing. She was seizing for approximately 5 minutes, ceased shaking, and then seizing for 3 minutes with LOC. The patient currently feels weakness on the left side and tingling sensation on her left face. Denies headaches or hx of migraines or tension headaches. Per the patient, she has been more stressed lately at home. Denies taking anti-epileptics, new medications, or overdose of substances. Denies the following: fevers, chills, SOB, chest pain, nausea, abdominal pain, vomiting, dysuria, hematuria, diarrhea, and leg pain/swelling. tPA Exclusion checklist 3-4.5h - Time Elapsed Date last known well: 05/29/19 Time last known well: 22:30 Elaspsed time: Day(s) and 7 Hour(s) and 53 Minutes - Thrombolytic Therapy Candidate Is patient eligible for thrombolytic therapy: Yes - Exclusion Criteria 3-4.5 hr SBP greater than 185 or DBP greater than 110mmHg despite tx: No Recent IC/spinal surgery,head trauma or stroke<3mos.: No Hx IC hemorrhage, IC neoplasm, AV malformation or aneurysm: No Active internal bleeding: No Blding diathesis(low plt ct, inc PTT,INR>1.7 or use of NOAC): No Symptoms suggest subarachnoid hemorrhage: No CT demonstrates multilobar infarct(>1/3 cerebral hemiphere): No Arterial puncture at noncompressible site in previous 7 days: No Blood glucose concentration less than 50mg/dL (2.7mmol/L): No - Relative Exclusion Criteria 3-4.5 hr Life expectancy <1 yr or severe co-morbid illness: No : No Patient/family refused: No Rapid improvement: No Stroke severity too mild: Yes Recent acute ME (w/in previous 3 months): No Seizure at onset with postictal residual neuro impairments: Yes Major surgery or serious trauma w/in previous 14 days: No Recent GI or hemorrhage (w/in previous 21 days): No - Add'l Relative Exclusion 3-4.5 hr Age > 80: No Hx of both diabetes AND prior ischemic stroke: No Taking an oral anticoagulant regardless of INR: No NIHSS >25: No - Ineligibility reason(s) Reasons No tPA given: See reason(s) noted above NIH Stroke Scale - Last Known Well Date/Time & Onset Date Last Known Well: 05/29/19 Time Last Known Well: 22:30 - Initial Evaluation Level of consciousness: Alert Ask patient the month and their age: Answers both correctly Ask patient to open & close eyes; make fist and let go: Obeys both correctly Best gaze (horizontal eye movement): Normal Visual field testing: No visual field loss Facial paresis (Show teeth/raise eyebrows/close eyes tight): Minor paralysis ( flattened nasolabial fold, asymmetry on smiling) Motor Function: Left Arm: Normal Motor Function: Right Arm: Normal (extends arm 90 (or 45) degrees for 10 seconds without drift Motor Function: Left Leg: Drift Motor Function: Right Leg: Normal (extends leg 30 degrees for 5 seconds without drift) Limb Ataxia: No ataxia Sensory(Use pinprick test arms,legs,trunk,face/side to side): Normal Best language (Describe picture, name items, read sentences): No Aphasia Dysarthria (read several words): Normal articulation Extinction and Inattention: No abnormality - Total Score NIH Stroke Scale Score: 2 Past History - Past Medical History Allergies/Adverse Reactions: Allergies Allergy/AdvReac Type Severity Reaction Status Date / Time No Known Allergies Allergy Verified 05/30/19 01:45 Home Medications: Ambulatory Orders NK [No Known Home Medication] 05/30/19 Anemia: Yes (PERNICIOUS) Cardiac Disorders: Yes (MVP) GI Disorders: Yes (HIATAL HERNIA) Seizures: Yes (02/2010) - Surgical History Orthopedic Surgery: Yes (LT ROTATOR CUFF 06/2014) - Immunization History Immunization Up to Date: Yes - Psycho Social/Smoking Cessation Hx Smoking History: Never smoked Have you smoked in the past 12 months: No Information on smoking cessation initiated: No Hx Alcohol Use: No Drug/Substance Use Hx: No Substance Use Type: None Hx Substance Use Treatment: No Review of Systems - Review of Systems Able to Perform ROS?: Yes Is the patient limited Romansh proficient: No Constitutional: Yes: Weakness. No: Chills, Diaphoresis, Fever HEENTM: No: Eye Pain, Ear Pain, Nose Pain, Nose Congestion, Throat Pain, Throat Swelling, Mouth Pain Respiratory: No: Cough, Shortness of Breath, Hemoptysis Cardiac (ROS): No: Chest Pain, Lightheadedness, Palpitations, Chest Tightness ABD/GI: No: Constipated, Diarrhea, Nausea, Rectal Bleeding, Vomiting, Tarry Stools : No: Burning, Dysuria, Hematuria Musculoskeletal: No: Back Pain, Joint Pain, Neck Pain Integumentary: No: Bruising, Flushing, Lesions Neurological: Yes: Seizure, Weakness, Unsteady Gait. No: Headache, Numbness, Tingling, Tremors Psychiatric: No: Change in Appetite Endocrine: No: Unexplained Weight Gain, Unexplained Weight Loss Hematologic/Lymphatic: No: Anemia *Physical Exam - Vital Signs Last Vital Signs Temp Pulse Resp BP Pulse Ox 97.0 F L 82 18 155/82 100 05/30/19 01:45 05/30/19 01:45 05/30/19 01:45 05/30/19 01:45 05/30/19 01:45 - Physical Exam General Appearance: Yes: Nourished, Appropriately Dressed. No: Apparent Distress ED Treatment Course - LABORATORY CBC & Chemistry Diagram: 05/30/19 03:45 05/30/19 03:45 Discharge - Follow up/Referral Referrals: Sarah Womack [Primary Care Provider] - - Patient Discharge Instructions - Post Discharge Activity
--- NOTE | 2019-05-30 02:26 | PDOC ---
Attending Attestation - Resident Resident Name: René Howard - ED Attending Attestation I have performed the following: I have examined & evaluated the patient, The case was reviewed & discussed with the resident, I agree w/resident's findings & plan - HPI HPI: 05/30/19 02:24 Pt comes with 5 min seizure followed by a 3 min seizure. She was sleeping in her bed when she had the seizure, witnessed by her kids. Pt has a hx of seizures 10 years ago. She recalls before the seizures ever started she had a fall and injured her head on the ground. Pt has never been on seizure meds. She has facial droop noted by family on the left side of her face. Pt has no complaints at this time. - Physicial Exam PE: 05/30/19 04:37 Heart and lungs clear. Afebrile. 05/30/19 06:22 Pt has normal neuro exam. She has a slight facial droop that is inonsistent on exam. Pt is A+Ox3. She has no abd pain and no flank pain. - Medical Decision Making 05/30/19 04:03 Patient Name: OTF VARELA THIS IS A PRELIMINARY REPORT FROM IMAGING RESEARCH ADVISOR DATE OF SERVICE: 2019-05-30 02:27:58 IMAGES: 223 EXAM: HEAD CT WITHOUT CONTRAST HISTORY: 64-Year-Old Female Seizure COMPARISON: None. FINDINGS: No acute intracranial hemorrhage mass effect or midline shift. The ventricles sulci and basilar cisterns have a normal size and contour. Mild nonspecific periventricular predominant low density throughout the deep white matter is most likely due to mild small vessel ischemic white matter disease. Moderate mineralization of the bilateral basal ganglia. The sinuses and mastoid air cells are clear within the [id number]. The calvarium is intact. IMPRESSION No acute intracranial hemorrhage mass effect or midline shift. Mild nonspecific periventricular predominant low density throughout the deep white matter is most likely due to mild small vessel ischemic white matter disease. Moderate mineralization of the bilateral basal ganglia. If clinically indicated follow-up outpatient MRI Brain Seizure Protocol may be needed. 05/30/19 04:36 Pt has a UTI; WBC normal Cholesterol norml 210; rest of chem pending 05/30/19 06:23 Pt will be admitted to [facility] for MRI and UTI treatment. Pt may require neuro eval for seizures.
[2019-05-30 03:22] LABS: EPI CELLS 1.9 /HPF (0-5/HPF); HYALINE CASTS 0 /lpf (0-8); URINE APPEARANCE CLEAR; URINE BACTERIA 115.8 /hpf (NEGATIVE); URINE BILIRUBIN NEGATIVE (NEGATIVE); URINE COLOR YELLOW; URINE GLUCOSE (UA) NEGATIVE (NEGATIVE); URINE KETONE NEGATIVE (NEGATIVE); URINE LEUK ESTERASE 3+ (NEGATIVE); URINE NITRITE NEGATIVE (NEGATIVE); URINE PROTEIN NEGATIVE (NEGATIVE); URINE UROBILINOGEN 0.2 mg/dL (0.2-1.0); URINE WBC 6 /hpf (0-5)
[2019-05-30] MEDS ORDERED: CEFTRIAXONE 1,000 MG in DEXTROSE 5%-WATER - 50 ML IVPB ONE (04:04)
[2019-05-30 04:11] LABS: BASO % 0.8 % (0-2.0); EOS % 2.5 % (0-4.5); HEMATOCRIT 37.2 % (32.4-45.2); MCH 28.9 pg (25.7-33.7); MCHC 32.2 g/dl (32.0-36.0); MEAN CELL VOLUME 89.9 fl (80-96); MEAN PLT VOLUME 8.1 fl (7.5-11.1); MONO % 6.3 % (3.8-10.2); NEUT % 47.4 % (42.8-82.8); PLATELET COUNT 268 K/MM3 (134-434); RBC 4.14 M/mm3 (3.60-5.2)
[2019-05-30] MEDS ORDERED: CEFTRIAXONE 1 GM/50 ML BAG ONE (04:12)
[2019-05-30 04:26] LABS: INR 0.97 (0.83-1.09); PROTHROMBIN TIME (PATIENT) 11.5 SEC (9.7-13.0)
[2019-05-30 04:29] LABS: ACTIVATED PTT 32.9 SECONDS (25.2-36.5)
[2019-05-30 04:41] LABS: ALBUMIN 3.4 g/dl (3.4-5.0); BILIRUBIN,TOTAL 0.4 mg/dL (0.2-1); BLOOD UREA NITROGEN 11.9 mg/dL (7-18); CREATININE 0.7 mg/dL (0.55-1.3); POTASSIUM 4.1 mmol/L (3.5-5.1); TOT PROT 7.5 g/dl (6.4-8.2)
[2019-05-30 04:50] LABS: LDL CHOLESTEROL (ONLY SJRH) 96 mg/dL (5-100); TRIGLYCERIDES 60 mg/dL (0-150)
--- NOTE | 2019-05-30 05:33 | PN ---
Teaching Attending Note Name of Resident: Cortez Shannon ATTENDING PHYSICIAN STATEMENT I saw and evaluated the patient. I reviewed the resident's note and discussed the case with the resident. I agree with the resident's findings and plan as documented. SUBJECTIVE: Patient is a 64 year old woman with a PMH of Seizures, MVP and HTN who presents to the ER after a seizure that occurred at approximately 12:45am. Per the patient, she states she went to bed at approximately 10:45 pm. The patient's family heard "gurgling noises" and came to her bedroom to see her having a seizure that lasted for approximately 5 minutes with LOC. The patient currently feels weakness on the left side and tingling sensation on her left face. Denies headaches or history of migraines or tension headaches. Patient states that she has been more stressed lately at home. Last had a seizure 7 years ago? and stopped taking anti-epileptics on her own. Denies any new medications, or overdose of substances. Denies fevers, chills, SOB, chest pain, nausea, abdominal pain, vomiting, dysuria, hematuria, diarrhea, and leg pain/swelling. Denies tobacco, alcohol or illicit drug use. No sick contacts or recent travel. OBJECTIVE: Alert Vital Signs Period Temp Pulse Resp BP Sys/Tucker Pulse Ox Last 24 Hr 97.0 F 72-82 18-18 132-155/66-82 100-100 HEENT: No Jaundice, eye redness or discharge, PERRLA, EOMI. Left facial droop. Normocephalic, atraumatic. External ears are normal and hearing is grossly intact. No nasal discharge. Neck: Supple, nontender. No palpable adenopathy or thyromegaly. No JVD Chest: Good effort. Clear to auscultation and percussion. Heart: Regular. No S3, rub or murmur Abdomen: Not distended, soft, nontender and no HSM. No rebound or guarding. Normal bowel sounds. Ext: Peripheral pulses intact. No leg edema. Skin: Warm and dry. No petechiae, rash or ecchymosis. Neuro: Alert. Oriented x3. CN 2-12 grossly intact. Left hemiparesis. Psych: Appropriate mood and affect. Good insight. Home Medications Medication Instructions Recorded NK [No Known Home Medication] 05/30/19 Abnormal Lab Results 05/30/19 05/30/19 05/30/19 03:00 03:45 03:45 Lymphocytes % 43.0 H D Chloride Anion Gap Cholesterol 210 H HDL Cholesterol Ur Specific [place] 1.007 L Ur Leukocyte Esterase 3+ H 05/30/19 03:45 Lymphocytes % Chloride 111 H Anion Gap 6 L Cholesterol HDL Cholesterol 94 H Ur Specific [place] Ur Leukocyte Esterase ASSESSMENT AND PLAN: 1. Seizure with residual paralysis - No acute abnormality on head CT. NIHSS score was 2. 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 Will load with Keppra 1000 mg IV and continue 500 mg bid; consult neurology and get brain MRI and EEG. Consult PT, do speech and swallow, give baby aspirin and lipitor. Get ECHO. Implement fall, seizure and aspiration precautions and do neurochecks. CXR result pending. EKG is NSR with no significant ST-T wave changes. Inconclusive evidence of UTI, but will continue IV Rocephin pending culture report. Will continue comprehensive care for all of patients comorbid conditions. 2. Hypertension - Restart suitable outpatient antihypertensive drugs when clinically appropriate. 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 Nonpharmacologic measures to control hypertension like weight loss , salt restriction and exercise discussed. Importance of adherence to treatment regimen and attainment of normotension emphasized. 3. DVT prophylaxis - Lovenox 40 mg SQ q 24 hours. 4. Advance directives - Full code
[2019-05-30 06:44] LABS: URINE RBC 4 /hpf (0-4)
[2019-05-30] MEDS ORDERED: levETIRAcetam 500 MG/5 ML INJECTION VIAL IVPB ONE (06:45)
--- NOTE | 2019-05-30 07:54 | HP ---
CHIEF COMPLAINT: seizure PCP: Dr. Sarah Lowery HISTORY OF PRESENT ILLNESS: Becki Blanc is a 64 year old female with a past medical history of seizures, HTN, anemia, mitral valve prolapse who presents to the ED after multiple witnessed seizures. Last reported seizure prior to current episodes was 7 years prior. Patient has not been on anti-epileptic medication since the seizure 7 years ago, has seen Dr. Holland in the past, and reports she does not like to take medication. On the current episode the patient does not recall the events and history was provided by the daughter who was at the bedside. Daughter had noticed coughing/gurgling noises that were coming from the patient's room and went to go investigate where she saw the mother with a contracted left upper limb and shaking of the right upper limb. Daughter attempted to talk to the patient and have her respond to voice and touch but the patient was non- responsive. EMS was called at this time. The shaking episode lasted for a subjective 5 minutes but was not officially timed. Shaking and contracture stopped and the patient became lethargic and was noted to have foaming at the mouth, tearing eyes, but no tongue bite, urinary or fecal incontinence. Inter- ictal period lasted for 5-7 subjective minutes during which the patient did not return to baseline, and a second contracture and shaking episode similar to the first began which lasted for a shorter period of time than the first but was not timed. After the second episode ceased, the patient was tended to by EMS on their arrival and the patient was brought to the hospital. Upon interview with the patient, she appeared tired by alert, oriented, x3, conversant, and able to follow all commands. Endorsed subjective left sided weakness, numbness, tingling on the face, arm, and leg. Denied headache, dizziness, lightheadedness, visual changes, field cuts, dysphagia, dysarthria, chest pain, shortness of breath, nausea, vomiting, diarrhea, constipation, fever , chills, dysuria, hematuria, incontinence, hesitancy, frequency. Denies recent travel. Denied the use of any substances, medications, intoxications, Daughter endorsed recently having sore throat and being around patient. States has had poor appetite and decreased PO intake. 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 Allergies No Known Allergies Allergy (Verified 05/30/19 01:45) HOME MEDICATIONS: Home Medications Medication Instructions Recorded NK [No Known Home Medication] 05/30/19 REVIEW OF SYSTEMS CONSTITUTIONAL: generalized weakness, loss of appetite Absent: fever, chills, diaphoresis, malaise, weight change HEENT: Absent: rhinorrhea, nasal congestion, throat pain, difficulty swallowing, visual changes CARDIOVASCULAR: Absent: chest pain, syncope, palpitations, irregular heart rate, lightheadedness , RESPIRATORY: Absent: cough, shortness of breath, dyspnea with exertion, orthopnea, wheezing, GASTROINTESTINAL: Absent: abdominal pain, abdominal distension, nausea, vomiting, diarrhea, constipation GENITOURINARY: Absent: dysuria, frequency, urgency, hesitancy, hematuria, flank pain, MUSCULOSKELETAL: Absent: myalgia, arthralgia, joint swelling, back pain, neck pain SKIN: Absent: rash, itching, pallor HEMATOLOGIC/IMMUNOLOGIC: Absent: easy bleeding, easy bruising, lymphadenopathy, frequent infections ENDOCRINE: Absent: unexplained weight gain, unexplained weight loss, heat intolerance, cold intolerance NEUROLOGIC: focal weakness of the L side arm, leg, face, numbness of left arm and leg, seizure Absent: headache, dizziness, unsteady gait, mental status changes, bladder or bowel incontinence PSYCHIATRIC: Absent: anxiety, depression, suicidal or homicidal ideation, hallucinations. PHYSICAL EXAMINATION Vital Signs - 24 hr 05/30/19 05/30/19 05/30/19 01:45 03:11 04:56 Temperature 97.0 F L Pulse Rate 82 Pulse Rate [ 72 Right Radial] Respiratory 18 18 Rate Blood Pressure 155/82 Blood Pressure 132/66 [Right Arm] O2 Sat by Pulse 100 100 100 Oximetry (%) GENERAL: Awake, alert, and fully oriented, in no acute distress. Tired. HEAD: Normal with no signs of trauma. EYES: Pupils equal, round and reactive to light 4mm, extraocular movements intact, sclera anicteric, conjunctiva clear. EARS, NOSE, THROAT: Oropharynx clear without exudates. Dry mucous membranes. NECK: Normal range of motion, supple without lymphadenopathy, JVD. LUNGS: Breath sounds equal, clear to auscultation bilaterally. No wheezes, and no crackles. No accessory muscle use. HEART: Regular rate and rhythm, normal S1 and S2 without murmur, rub. ABDOMEN: Soft, nontender, not distended, normoactive bowel sounds, no guarding, no rebound, no masses. MUSCULOSKELETAL: Normal range of motion at all joints. No bony deformities or tenderness. UPPER EXTREMITIES: 2+ pulses, warm, well-perfused. No cyanosis. No clubbing. No peripheral edema. LOWER EXTREMITIES: 2+ pulses, warm, well-perfused. No calf tenderness. No peripheral edema. NEUROLOGICAL: Facial droop on left upon smile, mild nasolabial fold loss. Decreased sensation in V2, V3 region. Decreased shoulder shrug on L. All other CN intact. No dysarthria noted. 4/5 muscle strength on the L arm proximally and distally. 3/5 muscle strength on LLE. Decreased sensation in LUE to gross touch. FTN intact on R, decreased on L (likely secondary to pain from IV site). HTN intact on R, poor on L. Gait deferred. PSYCHIATRIC: Cooperative. Good eye contact. Appropriate mood and affect. SKIN: Warm, dry, normal turgor, no rashes or lesions noted, normal capillary refill. Laboratory Results - last 24 hr 05/30/19 05/30/19 05/30/19 03:00 03:45 03:45 WBC RBC Hgb Hct MCV MCH MCHC RDW Plt Count MPV Absolute Neuts (auto) Neutrophils % Lymphocytes % Monocytes % Eosinophils % Basophils % Nucleated RBC % PT with INR 11.50 INR 0.97 PTT (Actin FS) 32.9 Sodium Potassium Chloride Carbon Dioxide Anion Gap BUN Creatinine Est GFR (CKD-EPI)AfAm Est GFR (CKD-EPI)NonAf Random Glucose Calcium Magnesium Total Bilirubin AST ALT Alkaline Phosphatase Creatine Kinase 74 Troponin I < 0.02 Total Protein Albumin Triglycerides Cholesterol Total LDL Cholesterol HDL Cholesterol Urine Color Yellow Urine Appearance Clear Urine pH 7.0 Ur Specific [place] 1.007 L Urine Protein Negative Urine Glucose (UA) Negative Urine Ketones Negative Urine Blood Trace Urine Nitrite Negative Urine Bilirubin Negative Urine Urobilinogen 0.2 Ur Leukocyte Esterase 3+ H Urine WBC (Auto) 6 Urine RBC (Auto) 4 Urine Casts (Auto) 0 U Epithel Cells (Auto) 1.9 Urine Bacteria (Auto) 115.8 Blood Type Antibody Screen Antibody Identification Antigen Identification 05/30/19 05/30/19 05/30/19 03:45 03:45 03:45 WBC 5.0 RBC 4.14 Hgb 12.0 Hct 37.2 MCV 89.9 MCH 28.9 MCHC 32.2 RDW 15.0 Plt Count 268 MPV 8.1 Absolute Neuts (auto) 2.4 Neutrophils % 47.4 D Lymphocytes % 43.0 H D Monocytes % 6.3 Eosinophils % 2.5 D Basophils % 0.8 Nucleated RBC % 0 PT with INR INR PTT (Actin FS) Sodium 144 Potassium 4.1 Chloride 111 H Carbon Dioxide 28 Anion Gap 6 L BUN 11.9 Creatinine 0.7 Est GFR (CKD-EPI)AfAm 107.62 Est GFR (CKD-EPI)NonAf 92.86 Random Glucose 84 Calcium 9.0 Magnesium Total Bilirubin 0.4 AST 22 ALT 31 Alkaline Phosphatase 73 Creatine Kinase Troponin I Total Protein 7.5 Albumin 3.4 Triglycerides Cholesterol 210 H Total LDL Cholesterol HDL Cholesterol 94 H Urine Color Urine Appearance Urine pH Ur Specific [place] Urine Protein Urine Glucose (UA) Urine Ketones Urine Blood Urine Nitrite Urine Bilirubin Urine Urobilinogen Ur Leukocyte Esterase Urine WBC (Auto) Urine RBC (Auto) Urine Casts (Auto) U Epithel Cells (Auto) Urine Bacteria (Auto) Blood Type Antibody Screen Antibody Identification Antigen Identification 05/30/19 05/30/19 05/30/19 03:45 03:45 03:45 WBC RBC Hgb Hct MCV MCH MCHC RDW Plt Count MPV Absolute Neuts (auto) Neutrophils % Lymphocytes % Monocytes % Eosinophils % Basophils % Nucleated RBC % PT with INR INR PTT (Actin FS) Sodium Potassium Chloride Carbon Dioxide Anion Gap BUN Creatinine Est GFR (CKD-EPI)AfAm Est GFR (CKD-EPI)NonAf Random Glucose Calcium Magnesium 2.2 Total Bilirubin AST ALT Alkaline Phosphatase Creatine Kinase Troponin I Total Protein Albumin Triglycerides 60 Cholesterol Total LDL Cholesterol 96 HDL Cholesterol Urine Color Urine Appearance Urine pH Ur Specific [place] Urine Protein Urine Glucose (UA) Urine Ketones Urine Blood Urine Nitrite Urine Bilirubin Urine Urobilinogen Ur Leukocyte Esterase Urine WBC (Auto) Urine RBC (Auto) Urine Casts (Auto) U Epithel Cells (Auto) Urine Bacteria (Auto) Blood Type A POSITIVE Antibody Screen Positive Antibody Identification Anti-e Antigen Identification E Antigen - NEGATIVE EKG--> NSR, no ST segment changes, QTc 480 ASSESSMENT/PLAN: Becki Blanc is a 64 year old female with a past medical history of seizures, HTN, anemia, mitral valve prolapse who presents to the ED after multiple witnessed seizures admitted s/p status epilepticus. Status Epilepticus - based upon definition of incomplete resolution to baseline between ictal episodes, unclear length of time of individual episodes - loaded with Keppra 1000mg - continue Keppra 500mg bid - head CT negative - neurology, Dr. Holland consulted - seizure precautions - dysphagia precautions - neurochecks - falls precautions - likely in setting of + UA, UTI, will continue IV ceftriaxone 1gm - TSH - Mg - Utox - Physical therapy - MRI if requested by neurology - if higher suspicion of stroke by neurology can start on statin and aspirin, at this time appears to fit clinical picture of seizure HLD - atorvastatin 20mg qhs - will need to follow up in outpatient clinic HTN - not on any home medications - continue dietary modifications for pressure control FEN - no standing fluids - continue to monitor electrolytes and replete as necessary - Sodium controlled diet Prophylaxis - Lovenox 40 MEq subq daily Dispo - monitor on telemetry Family Medical History Family History: Denies Visit type - Emergency Visit Emergency Visit: Yes ED Registration Date: 05/30/19 Care time: The patient presented to the Emergency Department on the above date and was hospitalized for further evaluation of their emergent condition. - New Patient This patient is new to me today: Yes Date on this admission: 05/30/19 - Critical Care Critical Care patient: No
[2019-05-30 10:42] LABS: HEMATOCRIT 35.1 % (32.4-45.2); HEMOGLOBIN 11.4 GM/dL (10.7-15.3); MCH 29.3 pg (25.7-33.7); MCHC 32.5 g/dl (32.0-36.0); MEAN PLT VOLUME 8.4 fl (7.5-11.1); PLATELET COUNT 245 K/MM3 (134-434); RDW 15.4 % (11.6-15.6); WHITE BLOOD COUNT 4.7 K/mm3 (4.0-10.0)
[2019-05-30] MEDS ORDERED: ONDANSETRON 4 MG/2 ML VIAL IVPUSH ONE (10:45)
[2019-05-30] MEDS ORDERED: ONDANSETRON 4 MG/2 ML VIAL ONE (10:47)
[2019-05-30 11:11] LABS: ALBUMIN 3.2 g/dl (3.4-5.0); BILIRUBIN,TOTAL 0.5 mg/dL (0.2-1); BLOOD UREA NITROGEN 9.4 mg/dL (7-18); CALCIUM 8.8 mg/dL (8.5-10.1); CREATININE 0.6 mg/dL (0.55-1.3); MAGNESIUM 2.2 mg/dL (1.8-2.4); TOT PROT 6.8 g/dl (6.4-8.2)
[2019-05-30] MEDS ORDERED: ONDANSETRON 4 MG/2 ML VIAL IVPUSH PRN (11:25)
--- NOTE | 2019-05-30 11:25 | PN ---
Progress Note, Physician Chief Complaint: C/o nausea, no seizures since arrival History of Present Illness: 64 year old female with a past medical history of seizures, HTN, anemia, mitral valve prolapse who presents to the ED after multiple witnessed seizures. Last reported seizure prior to current episodes was 7 years prior. Noncompliant with medication for past 7 years. - Current Medication List Current Medications: Active Medications Atorvastatin Calcium (Lipitor -) 20 mg PO HS TOM Enoxaparin Sodium (Lovenox -) 40 mg SQ DAILY TOM Ceftriaxone Sodium 1 gm/ (Dextrose) 50 mls @ 100 mls/hr IVPB DAILY TOM; Protocol Levetiracetam (Keppra -) 500 mg PO BID TOM - Objective Vital Signs: Vital Signs Temperature 97.0 F L 05/30/19 01:45 Pulse Rate 72 05/30/19 04:56 Respiratory Rate 18 05/30/19 04:56 Blood Pressure 132/66 05/30/19 04:56 O2 Sat by Pulse Oximetry (%) 100 05/30/19 04:56 General: Middle-aged woman, comfortable, not in distress HEENT; mucous membranes moist, no anemia, no jaundice, PERRLA, no nystagmus Neck: No JVD, supple, no bruit, thyroid palpably normal, normal carotid pulsations. Chest: Non-tender, clear to auscultation bilaterally CVS: S1-S2 regular no murmur/gallop/rub Abdomen: Non-distended, soft, bowel sounds present. Extremities: No edema., No cough tenderness, pulses present HR DIRECTOR: AO X3 , normal cranial nerves, normal speech left-sided more 3 /5 weakness, Labs: CBC, BMP 05/30/19 10:00 05/30/19 10:00 INR, PTT INR 0.97 (0.83-1.09) 05/30/19 03:45 - ....Imaging Cat Scan: Report Reviewed (No acute changes) Ultrasound: Report Reviewed (Carotid Doppler: Result pending) MRI: Report Reviewed (Pending) EKG: Report Reviewed (Normal) Problem List - Problems (1) Seizures Assessment/Plan: know case sizures last episode was 7 yrs ago not on any medication, present with witnessed seizures with left sided weakness, patient remained sisters. Since arrival to the ED, weakness can be post seizure with Ayan's palsy or new infarct, will continue Keppra, work-up for seizure, n.p.o. except medication, his speech and swallow evaluation, PT evaluation, neurology consult called from ED, follow-up carotid Doppler, MRI MRA brain, echocardiogram, telemetry monitoring. Problems reviewed: Yes Code(s): R56.9 - UNSPECIFIED CONVULSIONS (2) UTI (urinary tract infection) Assessment/Plan: cont ceftriaxone Problems reviewed: Yes Code(s): N39.0 - URINARY TRACT INFECTION, SITE NOT SPECIFIED (3) Hypercholesteremia Assessment/Plan: Continue stated Problems reviewed: Yes Code(s): E78.00 - PURE HYPERCHOLESTEROLEMIA, UNSPECIFIED (4) Left-sided weakness Assessment/Plan: Present with seizure and new onset left-sided weakness canbe post seizure Ayan' s palsy or new infarct or mass, will continue Keppra, work-up for seizure, n.p.o. except medication, his speech and swallow evaluation, PT evaluation, neurology consult called from ED, follow-up carotid Doppler, MRI brain, echocardiogram, telemetry monitoring. Problems reviewed: Yes Code(s): R53.1 - WEAKNESS
[2019-05-30] MEDS ORDERED: D5-1/2NS+10 MEQ KCL - 10 MEQ/1,000 ML INFUS.BAG IV SCH (11:30)
[2019-05-30] MEDS ORDERED: FAMOTIDINE 20 MG/50 ML IVPB 20 MG/50 ML MG IVPB ONE (11:36)
[2019-05-30] MEDS: ENOXAPARIN NA (PORCINE) 40 MG/0.4 ML DISP.SYRIN SQ SCH (11:45)
[2019-05-30] MEDS: levETIRAcetam 500 MG TABLET (FP) PO SCH ×2 (11:45→21:36)
[2019-05-30] MEDS: FAMOTIDINE 20 MG/50 ML IVPB 20 MG/50 ML MG IVPB SCH ×2 (11:45→21:35)
[2019-05-30 12:15] LABS: COCAINE, UR NEGATIVE ng/ml (CUTOFF=300); METHADONE, UR NEGATIVE ng/ml (CUTOFF=300); OPIATES, URI NEGATIVE ng/ml (CUTOFF=300); PHENCYCLIDINE,URINE NEGATIVE ng/ml (CUTOFF=25); URINE AMPHETAMINES NEGATIVE ng/ml (CUTOFF=500); URINE BARBITURATES NEGATIVE ng/ml (CUTOFF=200); URINE BENZODIAZEPINES NEGATIVE ng/ml (CUTOFF=200)
--- NOTE | 2019-05-30 19:00 | CONSULT ---
Consult - text type - Consultation Consultation Note: NEUROLOGY CONSULTATION is greatly appreciated: Events reviewed. Patient examined. This 64 yo RH woman with 12 children lives in [facility]. Known to me after head trauma> 10 years ago with the new onset of seizures. Patdient recalls that CT/MRI at that time showed residual "blood products" from ethe old trauma. Started on Levetiracetam which the patient took for about 1 year without seizures. She had a recurrent seizure about 7 years ago, off meds, and was treated in [place] ED. Claims AED's were not restarted. Here visiting her daughter. Had two witnessed seizures this morning which were "different" in that she had left facial numbness and left-sided weakness after the seizures which has persisted. CT/MRI of brain (reviewed): Scattered microvascular Changes, Loaded with Levetiracetaqm 1000 mg IV and placed on levetiracetam 500 mg PO BID Attempts to ambulate limited by unsteadiness and "seeing stars." JUAN: Nop sequellae of head trauma. No tongue biting. BP's 110/60 without orthostatic changes. NEURO: MS/Speech: Normal. CN II-XII: normal. No facial. Gag OK Motor: Min right drift. Left grasp 4/5. Mild left ankle DF weakness ( 4/5). Normal reflexes. Decreased AJ's. Toes downgoing. Coord: No obvious dystaxia Sensory: normal Gait: Unsteady standing. Drags left leg. 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 Mobilize OO Bed to chair Check orthostatic BP's Keep well-hydrated Continue levetiracetam 500 mg PO BID Thank you very much, Fred Holland MD
[2019-05-30] MEDS: ATORVASTATIN CA 20 MG TABLET (FP) PO SCH (21:36)
[2019-05-30 22:24] VITALS: BMI 30.9
--- NOTE | 2019-05-31 00:56 | EKG ---
Test Reason : Blood Pressure : / mmHG Vent. Rate : 068 BPM Atrial Rate : 068 BPM P-R Int : 158 ms QRS Dur : 086 ms QT Int : 452 ms P-R-T Axes : 074 048 035 degrees QTc Int : 480 ms NORMAL SINUS RHYTHM NORMAL ECG WHEN COMPARED WITH ECG OF 27-NOV-2016 00:34, NO SIGNIFICANT CHANGE WAS FOUND Confirmed by SONA RUBY MD ([id number]) on 05/31/2019 12:55:59 AM Referred By: Confirmed By:SONA RUBY MD
[2019-05-31 06:36] LABS: BASO % 1.2 % (0-2.0); EOS % 2.9 % (0-4.5); HEMATOCRIT 32.5 % (32.4-45.2); HEMOGLOBIN 10.5 GM/dL (10.7-15.3); MCHC 32.4 g/dl (32.0-36.0); MEAN CELL VOLUME 89.6 fl (80-96); MEAN PLT VOLUME 8.1 fl (7.5-11.1); NEUT % 35.9 % (42.8-82.8); PLATELET COUNT 231 K/MM3 (134-434); RBC 3.63 M/mm3 (3.60-5.2); RDW 15.6 % (11.6-15.6); WHITE BLOOD COUNT 4.4 K/mm3 (4.0-10.0)
[2019-05-31 07:17] LABS: BLOOD UREA NITROGEN 11.9 mg/dL (7-18); CALCIUM 8.7 mg/dL (8.5-10.1); CREATININE 0.7 mg/dL (0.55-1.3); POTASSIUM 4.2 mmol/L (3.5-5.1)
[2019-05-31] MEDS ORDERED: cefTRIAXone SODIUM 1 GM VIAL ONE (08:56)
[2019-05-31] MEDS ORDERED: DEXTROSE 5%-WATER - 50 ML IVPB ONE (08:56)
--- NOTE | 2019-05-31 09:08 | PN ---
Teaching Attending Note Name of Resident: Beatriz Aguila ATTENDING PHYSICIAN STATEMENT I saw and evaluated the patient. I reviewed the resident's note and discussed the case with the resident. I agree with the resident's findings and plan as documented. SUBJECTIVE: Patient is feeling better, as per patient last seizure was 7 yrs ago. denies any feveror chills, no shortness of breath. OBJECTIVE: Vital Signs Temperature 98.3 F 05/31/19 05:34 Pulse Rate 63 05/31/19 05:34 Respiratory Rate 18 05/31/19 05:34 Blood Pressure 143/57 L 05/31/19 05:34 O2 Sat by Pulse Oximetry (%) 97 05/30/19 20:00 GENERAL: The patient is awake, alert, and fully oriented, in no acute distress. HEAD: Normal with no signs of trauma. EYES: PERRL, extraocular movements intact, sclera anicteric, conjunctiva clear. ENT: Ears normal, oropharynx clear without exudates, moist mucous membranes. NECK: Trachea midline, full range of motion, supple. LUNGS: Breath sounds equal, clear to auscultation bilaterally, no wheezes, no crackles, no accessory muscle use. HEART: Regular rate and rhythm, S1, S2 without murmur, rub or gallop. ABDOMEN: Soft, nontender, nondistended, normoactive bowel sounds, no guarding, no rebound, no hepatosplenomegaly, no masses. EXTREMITIES: 2+ pulses, warm, well-perfused, no edema. NEUROLOGICAL: Cranial nerves II through XII grossly intact. Normal speech, gait not observed. PSYCH: Normal mood, normal affect. SKIN: Warm, dry, normal turgor, no rashes or lesions noted CBCD WBC 4.4 K/mm3 (4.0-10.0) 05/31/19 05:45 RBC 3.63 M/mm3 (3.60-5.2) 05/31/19 05:45 Hgb 10.5 GM/dL (10.7-15.3) L 05/31/19 05:45 Hct 32.5 % (32.4-45.2) 05/31/19 05:45 MCV 89.6 fl (80-96) 05/31/19 05:45 MCHC 32.4 g/dl (32.0-36.0) 05/31/19 05:45 RDW 15.6 % (11.6-15.6) 05/31/19 05:45 Plt Count 231 K/MM3 (134-434) 05/31/19 05:45 MPV 8.1 fl (7.5-11.1) 05/31/19 05:45 CMP Sodium 144 mmol/L (136-145) 05/31/19 05:45 Potassium 4.2 mmol/L (3.5-5.1) 05/31/19 05:45 Chloride 112 mmol/L (98-107) H 05/31/19 05:45 Carbon Dioxide 28 mmol/L (21-32) 05/31/19 05:45 Anion Gap 5 MMOL/L (8-16) L 05/31/19 05:45 BUN 11.9 mg/dL (7-18) 05/31/19 05:45 Creatinine 0.7 mg/dL (0.55-1.3) 05/31/19 05:45 Random Glucose 80 mg/dL (74-106) 05/31/19 05:45 Calcium 8.7 mg/dL (8.5-10.1) 05/31/19 05:45 Total Bilirubin 0.5 mg/dL (0.2-1) 05/30/19 10:00 AST 18 U/L (15-37) 05/30/19 10:00 ALT 27 U/L (13-61) 05/30/19 10:00 Alkaline Phosphatase 67 U/L (45-117) 05/30/19 10:00 Total Protein 6.8 g/dl (6.4-8.2) 05/30/19 10:00 Albumin 3.2 g/dl (3.4-5.0) L 05/30/19 10:00 CARDIAC ENZYMES Creatine Kinase 74 U/L (26-192) 05/30/19 03:45 Troponin I < 0.02 ng/ml (0.00-0.05) 05/30/19 03:45 Current Medications Generic Name Dose Route Start Last Admin Trade Name Freq PRN Reason Stop Dose Admin Acetaminophen 650 mg 05/31/19 13:43 Tylenol - PO Q6H PRN MODERATE PAIN Aspirin 81 mg 05/31/19 11:15 05/31/19 12:05 Ecotrin - PO 81 mg DAILY TOM Administration Atorvastatin Calcium 20 mg 05/30/19 22:00 05/30/19 21:36 Lipitor - PO 20 mg HS TOM Administration Enoxaparin Sodium 40 mg 05/30/19 10:00 05/31/19 09:41 Lovenox - SQ 40 mg DAILY TOM Administration Famotidine/Sodium Chloride 20 mg in 50 mls @ 100 mls/hr 05/30/19 11:30 09:42 Pepcid 20 Mg Premixed Ivpb - IVPB 100 mls/hr BID TOM Administration Ceftriaxone Sodium 2 gm/ 50 mls @ 100 mls/hr 06/01/19 10:00 Dextrose IVPB DAILY TOM Protocol Dextrose/Sodium Chloride 1,000 mls @ 75 mls/hr 05/31/19 15:00 D5-1/2ns - IV ASDIR TOM Levetiracetam 500 mg 05/30/19 10:00 05/31/19 09:41 Keppra - PO 500 mg BID TOM Administration Ondansetron HCl 4 mg 05/30/19 11:25 Zofran Injection IVPUSH Q6H PRN NAUSEA Home Medications Medication Instructions Recorded NK [No Known Home Medication] 05/30/19 MRI:NL Carotid duplex: 50-70% stenosis is noted of the proximal left internal carotid artery. ASSESSMENT AND PLAN: Patient is a 64yof with Pmhx of seizures (last 7 years ago), anemia, and MVP who presents to the ED, for having multiple witnessed seizures. #Acute seizure disorder on keppra bid now, follows up with , CT and MRI of the brain is negative. will continue to monitor for now. #Acute UTI on rocephin continue, ucx is pending. #left internal carotid artery stenosis 50-70% will place the patient on asa and lipitor 20mg hs #HTN mildly elevated will monitor DVT Ppx: Lovenox 40mg
[2019-05-31] MEDS: levETIRAcetam 500 MG TABLET (FP) PO SCH ×2 (09:41→21:13)
[2019-05-31] MEDS: ENOXAPARIN NA (PORCINE) 40 MG/0.4 ML DISP.SYRIN SQ SCH (09:41)
[2019-05-31] MEDS: FAMOTIDINE 20 MG/50 ML IVPB 20 MG/50 ML MG IVPB SCH ×2 (09:42→21:13)
[2019-05-31] MEDS ORDERED: CEFTRIAXONE 1 GM in DEXTROSE 5%-WATER - 50 ML IVPB SCH (10:00)
[2019-05-31] MEDS: ASPIRIN COATED 81 MG TABLET.EC PO SCH (12:05)
--- NOTE | 2019-05-31 12:16 | CONSULT ---
Admitting History and Physical - Primary Care Physician PCP: Campbell Reeves - Admission History of Present Illness: 64 year old female with a past medical history of seizures, HTN, anemia, mitral valve prolapse who presents to the ED after multiple witnessed seizures. Last reported seizure prior to current episodes was 7 years prior. 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 Seizures strated a couple of years afterwards. No longer took Seizure meds because she hadnt had any in a while. Pt reports left facial numbness and left side weakness improving History Source: Patient Limitations to Obtaining History: No Limitations - Smoking History Smoking history: Never smoked Have you smoked in the past 12 months: No - Alcohol/Substance Use Hx Alcohol Use: No History - Admission Reason For Visit: CEREBROVASCULAR ACCIDENT (CVA) - Diagnostics X-ray: Report Reviewed CT Scan: Report Reviewed MRI: Report Reviewed - General Mental Status: Alert and Oriented, Awake and Alert, Able to Follow Commands Attention: Intact Ability to Follow Directions: Excellent Head/Neck Control: WFL - Hearing Hearing: Functional Hearing: Normal Hearing Aide: No Speech Evaluation - Communication Primary Language: CZECH Communication: Yes: Within Normal Limits Oral Expression Ability: Yes: No Impairment - Speech Production Able to Make Needs Known: Yes: WNL Intelligibility: Yes: WNL - Speech Characteristics Voice Loudness: Normal Voice Pitch: Yes: Normal Voice Phonatory-based Quality: Yes: Normal Speech Pattern: Normal Nasal Resonance: Normal Articulation: Yes: Precise - Language/Auditory Comprehension Follows: Yes: 2 Stage Simple Commands - Language/Verbal Expression Able to Respond to Simple Queries: Yes: WNL Able to Communicate Wants and Needs: Yes: WNL Functional Communication Status: Yes: WNL Attention: Yes: Intact - 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: WNL Short Term Memory: Yes: WNL - Swallow Evaluation/Bedside Assessment Current Nutritional Intake: Regular, Thin Liquids Oral Secretions: Yes: WFL Dentition: Yes: Adequate Facial Symmetry at Rest: Symmetrical Facial Symmetry on Retraction: Symmetrical, Facial Droop Left (slight) Facial Movement: Controlled Sensation: Reduced Left (improving) Against Resistance Opening: Normal Against Resistance Closing: Normal Pucker Lips: Normal Smile: Normal Lingual Movement: Normal, Symmetric Lingual Speed of Movement: Normal Lingual Movement Strgth Against Opposition: Normal Lingual Movement Characteristics: Normal Velopharyngeal Movement: Normal Laryngeal Elevation: WFL Laryngeal Movement: Able to Palpate Rate of Intake: WFL Bolus Size: WFL Labial Seal: WFL Chewing: WFL Oral Prep Time: WFL A-P Transit: WFL Pocketing: None Timing of Swallow: WFL Coughing/Throat Clear: No Change in Voice: No Recommendations - Speech Evaluation, Impression/Plan Impression: Speech,language, cognition, swallowing at baseline with exception of improving left facial sensory deficits. - Dysphagia Impressions/Plan Swallowing Skills: WF Dysphagia Impressions: No Impairment *Silent aspiration: cannot be R/O at bedside - Recommendations Diet Consistency: Regular Medication Administration: Whole with water Liquids: Thin Liquids
[2019-05-31] MEDS ORDERED: ACETAMINOPHEN 325 MG TABLET (FP) PO PRN (13:43)
--- NOTE | 2019-05-31 14:02 | PN ---
Physical Exam: SUBJECTIVE: Patient seen and examined. She reports right side back pain that sometimes radiates to her side. She believes it is MSK. She also reports dizziness when sitting up initially. She continues to have loss of appetite. She denies chest pain, shortness of breath, headache, abdominal pain, nausea, or vomiting. OBJECTIVE: Vital Signs Period Temp Pulse Resp BP Sys/Tucker Pulse Ox Last 24 Hr 97.8 F-98.4 F 63-87 16-18 98-143/57-66 97-97 GENERAL: The patient is awake, alert, and fully oriented, in no acute distress. HEAD: Normal with no signs of trauma. EYES: PERRL, extraocular movements intact, conjunctiva clear. ENT: Ears normal, nares patent, moist mucous membranes. NECK: Trachea midline, full range of motion. LUNGS: Clear to auscultation bilaterally HEART: Regular rate and rhythm, no murmur ABDOMEN: Soft, nontender, nondistended, normoactive bowel sounds BACK: Non-tender to palpation, no hypertonicity of muscles EXTREMITIES: Warm, well-perfused, no edema. NEUROLOGICAL: Cranial nerves II through XII grossly intact. Normal speech. PSYCH: Normal mood, normal affect. SKIN: Warm, dry, normal turgor, no rashes no events on telemetry Laboratory Results - last 24 hr 05/30/19 05/31/19 05/31/19 17:33 05:45 05:45 WBC 4.4 RBC 3.63 Hgb 10.5 L Hct 32.5 MCV 89.6 MCH 29.0 MCHC 32.4 RDW 15.6 Plt Count 231 MPV 8.1 Absolute Neuts (auto) 1.6 Neutrophils % 35.9 L D Lymphocytes % 53.0 H D Monocytes % 7.0 Eosinophils % 2.9 Basophils % 1.2 Nucleated RBC % 0 Sodium 144 Potassium 4.2 Chloride 112 H Carbon Dioxide 28 Anion Gap 5 L BUN 11.9 Creatinine 0.7 Est GFR (CKD-EPI)AfAm 107.62 Est GFR (CKD-EPI)NonAf 92.86 POC Glucometer 98 Random Glucose 80 Calcium 8.7 TSH 1.08 Active Medications Generic Name Dose Route Start Last Admin Trade Name Freq PRN Reason Stop Dose Admin Aspirin 81 mg 05/31/19 11:15 05/31/19 12:05 Ecotrin - PO 81 mg DAILY TOM Administration Atorvastatin Calcium 20 mg 05/30/19 22:00 05/30/19 21:36 Lipitor - PO 20 mg HS TOM Administration Enoxaparin Sodium 40 mg 05/30/19 10:00 05/31/19 09:41 Lovenox - SQ 40 mg DAILY TOM Administration Famotidine/Sodium Chloride 20 mg in 50 mls @ 100 mls/hr 05/30/19 11:30 09:42 Pepcid 20 Mg Premixed Ivpb - IVPB 100 mls/hr BID TOM Administration Ceftriaxone Sodium 2 gm/ 50 mls @ 100 mls/hr 06/01/19 10:00 Dextrose IVPB DAILY TOM Protocol Levetiracetam 500 mg 05/30/19 10:00 05/31/19 09:41 Keppra - PO 500 mg BID TOM Administration Ondansetron HCl 4 mg 05/30/19 11:25 Zofran Injection IVPUSH Q6H PRN NAUSEA ASSESSMENT/PLAN: Ms. Blanc is a 64y/o female with history of seizures (last 7 years ago), HTN, anemia, and MVP who presents following multiple witnessed seizures and loss of appetite. #seizure disorder -CT head/ MRI brain negative for acute processes -continue Keppra 500mg BID -neuro following (Dr. Holland) -tele monitoring #UTI -ceftriaxone 2g IV daily -urine cx pending #left internal carotid artery stenosis -elevated HDL, normal LDL -ASA 81mg -atorvastatin 20mg -echo ordered #HTN -monitor vitals -currently not on meds DVT Ppx Lovenox 40mg FEN PO fluids monitor labs sodium controlled diet dispo monitor on tele Visit type - Emergency Visit Emergency Visit: Yes ED Registration Date: 05/30/19 Care time: The patient presented to the Emergency Department on the above date and was hospitalized for further evaluation of their emergent condition. - New Patient This patient is new to me today: Yes Date on this admission: 05/31/19 - Critical Care Critical Care patient: No - Discharge Referral Referred to [facility] Med P.C.: No ATTENDING PHYSICIAN STATEMENT I saw and evaluated the patient. I reviewed the resident's note and discussed the case with the resident. I agree with the resident's findings and plan as documented. SUBJECTIVE: OBJECTIVE: ASSESSMENT AND PLAN:
[2019-05-31] MEDS ORDERED: DEXTROSE 5%-0.45% SALINE 1,000 ML IV SCH (15:00)
--- NOTE | 2019-05-31 16:03 | ECHO ---
Name: OTF VARELA L Exam:Adult Echocardiogram Study Date: 05/31/2019 10:47 AM Age: 64 yrs Reason For Study: SYNCOPE Height: 63 in Weight: 150 lb BSA: 1.7 m2 MMode/2D Measurements & Calculations IVSd: 1.1 cm Ao root diam: 2.7 cm LVIDd: 3.4 cm LA dimension: 3.0 cm LVIDs: 2.1 cm ACS: 1.8 cm LVPWd: 1.1 cm EDV(Teich): 46.9 ml LVOT diam: 2.0 cm ESV(Teich): 14.6 ml RV S Bossman: 12.7 cm/sec Doppler Measurements & Calculations MV E max bossman: 95.3 cm/sec Ao V2 max: 148.8 cm/sec MV A max bossman: 91.8 cm/sec Ao max P.9 mmHg MV E/A: 1.0 Ao V2 mean: 105.2 cm/sec MV dec time: 0.27 sec Ao mean P.9 mmHg Ao V2 VTI: 38.2 cm JULI(I,D): 2.3 cm2 JULI(V,D): 2.7 cm2 LV V1 max P.6 mmHg MR max bossman: 394.4 cm/sec LV V1 mean P.0 mmHg MR max P.2 mmHg LV V1 max: 128.3 cm/sec LV V1 mean: 79.4 cm/sec LV V1 VTI: 27.7 cm SV(LVOT): 87.1 ml TR max bossman: 261.3 cm/sec TR max P.4 mmHg PA V2 max: 61.2 cm/sec Med Peak E' Bossman: 7.5 cm/sec PA max P.5 mmHg Med E/e': 12.7 Lat Peak E' Bossman: 8.1 cm/sec Lat E/e': 11.8 Procedure A complete two-dimensional transthoracic echocardiogram was performed (2D, M-mode, Doppler and color flow Doppler). Left Ventricle The left ventricle is normal in size. Left ventricular systolic function is normal. Ejection Fraction = 65- 70%. No regional wall motion abnormalities noted. Right Ventricle The right ventricle is normal size. The right ventricular systolic function is normal. RV systolic TD I is 13 cm/s. Atria The left atrial size is normal. Right atrial size is normal. Mitral Valve The mitral valve is normal in structure and function. There is mild mitral regurgitation. Tricuspid Valve The tricuspid valve is normal in structure and function. There is moderate tricuspid regurgitation. P ulmonary artery systolic pressure is at least 34 mmHg if RA pressure is assumed 3 mmHg. Aortic Valve The aortic valve is normal in structure and function. No aortic regurgitation is present. Pulmonic Valve The pulmonic valve is not well visualized. Great Vessels The aortic root is normal size. Pericardium/Pleura There is no pericardial effusion. Interpretation Summary The left ventricle is normal in size. Left ventricular systolic function is normal. No regional wall motion abnormalities noted. Ejection Fraction = 65-70%. The right ventricular systolic function is normal. The left atrial size is normal. Right atrial size is normal. There is mild mitral regurgitation. There is moderate tricuspid regurgitation. Pulmonary artery systolic pressure is at least 34 mmHg if RA pressure is assumed 3 mmHg There is no pericardial effusion. Mendez Oakley MD 05/31/2019 04:03 PM
[2019-05-31] MEDS: ATORVASTATIN CA 20 MG TABLET (FP) PO SCH (21:13)
--- NOTE | 2019-05-31 22:50 | PN ---
Progress Note (short form) - Note Progress Note: NEUROLOGY PROGRESS: No further seizures on Levetiracetam Pt still c/o unsteady gait. EXAM: No nystagmus. Full EOM's and greenberg. Gag normal No facial No drift. Sl reduced left AIMEE's Ankle DF 5/5 B/L/ Normal reflexes. Toes downgoing. Feels touch, vib both feet. Gait not tested. IMP: Partial seizures Improving Ayan's paralysis SUGGEST: Continue levetiracetam 500 mg PO BID Mobilize OO Bed to chair TID for meals PT for ambulation. Thank you very much, Fred Holland MD
[2019-06-01 07:14] LABS: BASO % 1.1 % (0-2.0); EOS % 4.7 % (0-4.5); HEMATOCRIT 33.7 % (32.4-45.2); HEMOGLOBIN 10.8 GM/dL (10.7-15.3); LYMPH % 50.5 % (8-40); MCH 28.7 pg (25.7-33.7); MCHC 32.1 g/dl (32.0-36.0); MEAN CELL VOLUME 89.4 fl (80-96); MEAN PLT VOLUME 8.2 fl (7.5-11.1); MONO % 8.4 % (3.8-10.2); NEUT % 35.3 % (42.8-82.8); PLATELET COUNT 234 K/MM3 (134-434); RBC 3.78 M/mm3 (3.60-5.2); RDW 15.1 % (11.6-15.6)
[2019-06-01 07:46] LABS: ALBUMIN 2.6 g/dl (3.4-5.0); BILIRUBIN,TOTAL 0.3 mg/dL (0.2-1); BLOOD UREA NITROGEN 9.6 mg/dL (7-18); CALCIUM 8.4 mg/dL (8.5-10.1); CREATININE 0.6 mg/dL (0.55-1.3); MAGNESIUM 2.1 mg/dL (1.8-2.4); POTASSIUM 3.9 mmol/L (3.5-5.1); TOT PROT 6.1 g/dl (6.4-8.2)
[2019-06-01] MEDS ORDERED: cefTRIAXone SODIUM 1 GM VIAL ONE (09:36)
[2019-06-01] MEDS ORDERED: DEXTROSE 5%-WATER - 50 ML IVPB ONE (09:36)
[2019-06-01] MEDS: SODIUM CHLORIDE 0.45% 1,000 ML IV SCH (09:45)
[2019-06-01] MEDS: FAMOTIDINE 20 MG/50 ML IVPB 20 MG/50 ML MG IVPB SCH ×2 (09:50→21:24)
[2019-06-01] MEDS: levETIRAcetam 500 MG TABLET (FP) PO SCH ×2 (09:50→21:24)
[2019-06-01] MEDS: ASPIRIN COATED 81 MG TABLET.EC PO SCH (09:50)
[2019-06-01] MEDS: ENOXAPARIN NA (PORCINE) 40 MG/0.4 ML DISP.SYRIN SQ SCH (09:50)
[2019-06-01] MEDS ORDERED: CEFTRIAXONE 2 GM in DEXTROSE 5%-WATER - 50 ML IVPB SCH (10:00)
[2019-06-01] MEDS ORDERED: CEFTRIAXONE 1 GM in DEXTROSE 5%-WATER - 50 ML IVPB SCH (10:00)
--- NOTE | 2019-06-01 13:01 | PN ---
Teaching Attending Note Name of Resident: Beatriz Aguila ATTENDING PHYSICIAN STATEMENT I saw and evaluated the patient. I reviewed the resident's note and discussed the case with the resident. I agree with the resident's findings and plan as documented. SUBJECTIVE: Patient is feeling better, as per patient last seizure was 7 yrs ago. denies any fever or chills, no shortness of breath. Patient is feeling weak, difficulty with walking. OBJECTIVE: Vital Signs Temperature 97.9 F 06/01/19 09:40 Pulse Rate 70 06/01/19 09:40 Respiratory Rate 18 06/01/19 09:40 Blood Pressure 114/60 06/01/19 09:40 O2 Sat by Pulse Oximetry (%) 98 06/01/19 09:40 GENERAL: The patient is awake, alert, and fully oriented, in no acute distress. HEAD: Normal with no signs of trauma. EYES: PERRL, extraocular movements intact, sclera anicteric, conjunctiva clear. ENT: Ears normal, oropharynx clear without exudates, moist mucous membranes. NECK: Trachea midline, full range of motion, supple. LUNGS: Breath sounds equal, clear to auscultation bilaterally, no wheezes, no crackles, no accessory muscle use. HEART: Regular rate and rhythm, S1, S2 without murmur, rub or gallop. ABDOMEN: Soft, nontender, nondistended, normoactive bowel sounds, no guarding, no rebound, no hepatosplenomegaly, no masses. EXTREMITIES: 2+ pulses, warm, well-perfused, no edema. NEUROLOGICAL: Cranial nerves II through XII grossly intact. Normal speech, gait not observed. PSYCH: Normal mood, normal affect. SKIN: Warm, dry, normal turgor, no rashes or lesions noted CBCD WBC 4.0 K/mm3 (4.0-10.0) 06/01/19 06:25 RBC 3.78 M/mm3 (3.60-5.2) 06/01/19 06:25 Hgb 10.8 GM/dL (10.7-15.3) 06/01/19 06:25 Hct 33.7 % (32.4-45.2) 06/01/19 06:25 MCV 89.4 fl (80-96) 06/01/19 06:25 MCHC 32.1 g/dl (32.0-36.0) 06/01/19 06:25 RDW 15.1 % (11.6-15.6) 06/01/19 06:25 Plt Count 234 K/MM3 (134-434) 06/01/19 06:25 MPV 8.2 fl (7.5-11.1) 06/01/19 06:25 CMP Sodium 146 mmol/L (136-145) H 06/01/19 06:25 Potassium 3.9 mmol/L (3.5-5.1) 06/01/19 06:25 Chloride 115 mmol/L (98-107) H 06/01/19 06:25 Carbon Dioxide 26 mmol/L (21-32) 06/01/19 06:25 Anion Gap 5 MMOL/L (8-16) L 06/01/19 06:25 BUN 9.6 mg/dL (7-18) 06/01/19 06:25 Creatinine 0.6 mg/dL (0.55-1.3) 06/01/19 06:25 Random Glucose 85 mg/dL (74-106) 06/01/19 06:25 Calcium 8.4 mg/dL (8.5-10.1) L 06/01/19 06:25 Total Bilirubin 0.3 mg/dL (0.2-1) 06/01/19 06:25 AST 14 U/L (15-37) L 06/01/19 06:25 ALT 22 U/L (13-61) 06/01/19 06:25 Alkaline Phosphatase 61 U/L (45-117) 06/01/19 06:25 Total Protein 6.1 g/dl (6.4-8.2) L 06/01/19 06:25 Albumin 2.6 g/dl (3.4-5.0) L 06/01/19 06:25 CARDIAC ENZYMES Creatine Kinase 74 U/L (26-192) 05/30/19 03:45 Troponin I < 0.02 ng/ml (0.00-0.05) 05/30/19 03:45 Current Medications Generic Name Dose Route Start Last Admin Trade Name Freq PRN Reason Stop Dose Admin Acetaminophen 650 mg 05/31/19 13:43 Tylenol - PO Q6H PRN MODERATE PAIN Aspirin 81 mg 05/31/19 11:15 06/01/19 09:50 Ecotrin - PO 81 mg DAILY TOM Administration Atorvastatin Calcium 20 mg 05/30/19 22:00 05/31/19 21:13 Lipitor - PO 20 mg HS TOM Administration Enoxaparin Sodium 40 mg 05/30/19 10:00 06/01/19 09:50 Lovenox - SQ 40 mg DAILY TOM Administration Famotidine/Sodium Chloride 20 mg in 50 mls @ 100 mls/hr 05/30/19 11:30 09:50 Pepcid 20 Mg Premixed Ivpb - IVPB 100 mls/hr BID TOM Administration Ceftriaxone Sodium 1 gm/ 50 mls @ 100 mls/hr 06/01/19 10:00 06/01/19 09:50 Dextrose IVPB 100 mls/hr DAILY TOM Administration Protocol Sodium Chloride 1,000 mls @ 75 mls/hr 06/01/19 08:15 06/01/19 09:45 1/2 Normal Saline IV 75 mls/hr ASDIR TOM Administration Levetiracetam 500 mg 05/30/19 10:00 06/01/19 09:50 Keppra - PO 500 mg BID TOM Administration Ondansetron HCl 4 mg 05/30/19 11:25 Zofran Injection IVPUSH Q6H PRN NAUSEA Home Medications Medication Instructions Recorded NK [No Known Home Medication] 05/30/19 MRI:NL Microbiology 05/30/19 03:00 Urine - Urine Clean Catch Urine Culture - Final Enterococcus Faecium Strep Agalactiae Group B Carotid duplex: 50-70% stenosis is noted of the proximal left internal carotid artery. ASSESSMENT AND PLAN: Patient is a 64yof with Pmhx of seizures (last 7 years ago), anemia, and MVP who presents to the ED, for having multiple witnessed seizures. #Acute seizure disorder on keppra bid now, follows up with , CT and MRI of the brain is negative. will continue to monitor for now. #Acute UTI on rocephin continue, ucx as above. #left internal carotid artery stenosis 50-70% will place the patient on asa and lipitor 20mg hs #HTN mildly elevated will monitor DVT Ppx: Lovenox 40mg
--- NOTE | 2019-06-01 15:49 | PN ---
Physical Exam: SUBJECTIVE: Patient seen and examined. She reports generalized weakness and right side back pain. She denies headache but has dizziness following keppra. She denies chest pain, abdominal pain, nausea, or vomiting. OBJECTIVE: Vital Signs Period Temp Pulse Resp BP Sys/Tucker Pulse Ox Last 24 Hr 97.6 F-98.3 F 64-75 18-20 114-122/60-73 98-100 GENERAL: The patient is awake, alert, and fully oriented, in no acute distress. HEAD: Normal with no signs of trauma. EYES: PERRL, extraocular movements intact, conjunctiva clear. ENT: Ears normal, nares patent, moist mucous membranes. NECK: Trachea midline, full range of motion. LUNGS: Clear to auscultation bilaterally HEART: Regular rate and rhythm, no murmur ABDOMEN: Soft, nontender, nondistended, normoactive bowel sounds BACK: Non-tender to palpation, no hypertonicity of muscles EXTREMITIES: Warm, well-perfused, no edema. NEUROLOGICAL: Cranial nerves II through XII grossly intact. Normal speech. PSYCH: Normal mood, normal affect. SKIN: Warm, dry, normal turgor, no rashes no events on telemetry Laboratory Results - last 24 hr 06/01/19 06/01/19 06:25 06:25 WBC 4.0 RBC 3.78 Hgb 10.8 Hct 33.7 MCV 89.4 MCH 28.7 MCHC 32.1 RDW 15.1 Plt Count 234 MPV 8.2 Absolute Neuts (auto) 1.4 L Neutrophils % 35.3 L Lymphocytes % 50.5 H Monocytes % 8.4 Eosinophils % 4.7 H Basophils % 1.1 Nucleated RBC % 0 Sodium 146 H Potassium 3.9 Chloride 115 H Carbon Dioxide 26 Anion Gap 5 L BUN 9.6 Creatinine 0.6 Est GFR (CKD-EPI)AfAm 113.22 Est GFR (CKD-EPI)NonAf 97.69 Random Glucose 85 Calcium 8.4 L Magnesium 2.1 Total Bilirubin 0.3 AST 14 L ALT 22 Alkaline Phosphatase 61 Total Protein 6.1 L Albumin 2.6 L Active Medications Generic Name Dose Route Start Last Admin Trade Name Freq PRN Reason Stop Dose Admin Acetaminophen 650 mg 05/31/19 13:43 Tylenol - PO Q6H PRN MODERATE PAIN Aspirin 81 mg 05/31/19 11:15 06/01/19 09:50 Ecotrin - PO 81 mg DAILY TOM Administration Atorvastatin Calcium 20 mg 05/30/19 22:00 05/31/19 21:13 Lipitor - PO 20 mg HS TOM Administration Enoxaparin Sodium 40 mg 05/30/19 10:00 06/01/19 09:50 Lovenox - SQ 40 mg DAILY TOM Administration Famotidine/Sodium Chloride 20 mg in 50 mls @ 100 mls/hr 05/30/19 11:30 09:50 Pepcid 20 Mg Premixed Ivpb - IVPB 100 mls/hr BID TOM Administration Ceftriaxone Sodium 1 gm/ 50 mls @ 100 mls/hr 06/01/19 10:00 06/01/19 09:50 Dextrose IVPB 100 mls/hr DAILY TOM Administration Protocol Sodium Chloride 1,000 mls @ 75 mls/hr 06/01/19 08:15 06/01/19 09:45 1/2 Normal Saline IV 75 mls/hr ASDIR TOM Administration Levetiracetam 500 mg 05/30/19 10:00 06/01/19 09:50 Keppra - PO 500 mg BID TOM Administration Ondansetron HCl 4 mg 05/30/19 11:25 Zofran Injection IVPUSH Q6H PRN NAUSEA ASSESSMENT/PLAN: Ms. Blanc is a 64y/o female with history of seizures (last 7 years ago), HTN, anemia, and MVP who presents following multiple witnessed seizures and loss of appetite. #seizure disorder -CT head/ MRI brain negative for acute processes -continue Keppra 500mg BID -echo- EF 65-70%, increased pulmonary pressure of 34, mild MR, mod TR -neuro following (Dr. Holland) -PT #UTI -ceftriaxone 1g IV daily x 2 days given -final urine cx result enterococcus 20-30k CFUs -asymptomatic #left internal carotid artery stenosis -elevated HDL, normal LDL -ASA 81mg -atorvastatin 20mg #HTN -monitor vitals -currently not on meds DVT Ppx Lovenox 40mg FEN PO fluids monitor labs sodium controlled diet dispo tele to med/surg Visit type - Emergency Visit Emergency Visit: Yes ED Registration Date: 05/30/19 Care time: The patient presented to the Emergency Department on the above date and was hospitalized for further evaluation of their emergent condition. - New Patient This patient is new to me today: No - Critical Care Critical Care patient: No - Discharge Referral Referred to [facility] Med P.C.: No ATTENDING PHYSICIAN STATEMENT I saw and evaluated the patient. I reviewed the resident's note and discussed the case with the resident. I agree with the resident's findings and plan as documented. SUBJECTIVE: OBJECTIVE: ASSESSMENT AND PLAN:
[2019-06-01] MEDS: ATORVASTATIN CA 20 MG TABLET (FP) PO SCH (21:25)
[2019-06-02 07:59] LABS: BASO % 1.1 % (0-2.0); EOS % 4.2 % (0-4.5); HEMATOCRIT 32.5 % (32.4-45.2); HEMOGLOBIN 10.8 GM/dL (10.7-15.3); LYMPH % 41.7 % (8-40); MCH 29.3 pg (25.7-33.7); MCHC 33.2 g/dl (32.0-36.0); MEAN CELL VOLUME 88.4 fl (80-96); MEAN PLT VOLUME 8.2 fl (7.5-11.1); MONO % 8.7 % (3.8-10.2); NEUT % 44.3 % (42.8-82.8); PLATELET COUNT 242 K/MM3 (134-434); RBC 3.68 M/mm3 (3.60-5.2); RDW 14.7 % (11.6-15.6); WHITE BLOOD COUNT 3.6 K/mm3 (4.0-10.0)
[2019-06-02 08:43] LABS: ALBUMIN 2.9 g/dl (3.4-5.0); BILIRUBIN,TOTAL 0.4 mg/dL (0.2-1); BLOOD UREA NITROGEN 7.7 mg/dL (7-18); CALCIUM 8.4 mg/dL (8.5-10.1); CREATININE 0.6 mg/dL (0.55-1.3); MAGNESIUM 2.1 mg/dL (1.8-2.4); POTASSIUM 4.1 mmol/L (3.5-5.1); TOT PROT 6.5 g/dl (6.4-8.2)
[2019-06-02] MEDS: ASPIRIN COATED 81 MG TABLET.EC PO SCH ×2 (08:58→09:05)
[2019-06-02] MEDS: levETIRAcetam 500 MG TABLET (FP) PO SCH ×3 (08:58→21:08)
[2019-06-02] MEDS: FAMOTIDINE 20 MG/50 ML IVPB 20 MG/50 ML MG IVPB SCH ×3 (08:58→21:08)
[2019-06-02] MEDS: ENOXAPARIN NA (PORCINE) 40 MG/0.4 ML DISP.SYRIN SQ SCH (08:59)
[2019-06-02] MEDS: SODIUM CHLORIDE 0.45% 1,000 ML IV SCH (08:59)
--- NOTE | 2019-06-02 11:31 | PN ---
Progress Note, DEPORTATION EXAMINER - Note Progress Note: Selected Entries 05/31/19 06/01/19 06/01/19 14:41 02:00 06:00 Breakfast Lunch 75% Supper Temperature 97.6 F 98.3 F 06/01/19 06/01/19 06/01/19 09:40 10:31 14:47 Breakfast 75% Lunch 75% Supper Temperature 97.9 F 06/01/19 06/01/19 06/01/19 14:48 17:00 19:43 Breakfast Lunch Supper 100% Temperature 98.3 F 97.9 F 06/01/19 06/02/19 06/02/19 21:00 01:00 05:00 Breakfast Lunch Supper Temperature 98.1 F 97.8 F 98.2 F Tolerating reg diet/thin liquids. No further f/u needed.
--- NOTE | 2019-06-02 15:48 | PN ---
Physical Exam: SUBJECTIVE: Patient seen and examined. She reports decreased weakness. She also reports b/l lumbar back pain. She denies headache but has dizziness following keppra. She denies chest pain, abdominal pain, nausea, or vomiting. OBJECTIVE: Vital Signs Period Temp Pulse Resp BP Sys/Tucker Pulse Ox Last 24 Hr 97.8 F-98.6 F 74-78 17-20 110-145/59-88 98-98 GENERAL: The patient is awake, alert, and fully oriented, in no acute distress. HEAD: Normal with no signs of trauma. EYES: PERRL, extraocular movements intact, conjunctiva clear. ENT: Ears normal, nares patent, moist mucous membranes. NECK: Trachea midline, full range of motion. LUNGS: Clear to auscultation bilaterally HEART: Regular rate and rhythm, no murmur ABDOMEN: Soft, nontender, nondistended, normoactive bowel sounds BACK: Bilateral lumbar hypertonicity tender to palpation EXTREMITIES: Warm, well-perfused, no edema. NEUROLOGICAL: Cranial nerves II through XII grossly intact. Normal speech. PSYCH: Normal mood, normal affect. SKIN: Warm, dry, normal turgor, no rashes Laboratory Results - last 24 hr 06/02/19 06/02/19 06:50 06:50 WBC 3.6 L RBC 3.68 Hgb 10.8 Hct 32.5 MCV 88.4 MCH 29.3 MCHC 33.2 RDW 14.7 Plt Count 242 MPV 8.2 Absolute Neuts (auto) 1.6 Neutrophils % 44.3 D Lymphocytes % 41.7 H Monocytes % 8.7 Eosinophils % 4.2 Basophils % 1.1 Nucleated RBC % 0 Sodium 144 Potassium 4.1 Chloride 111 H Carbon Dioxide 28 Anion Gap 4 L BUN 7.7 Creatinine 0.6 Est GFR (CKD-EPI)AfAm 113.22 Est GFR (CKD-EPI)NonAf 97.69 Random Glucose 75 Calcium 8.4 L Magnesium 2.1 Total Bilirubin 0.4 AST 15 ALT 27 Alkaline Phosphatase 67 Total Protein 6.5 Albumin 2.9 L Active Medications Generic Name Dose Route Start Last Admin Trade Name Freq PRN Reason Stop Dose Admin Acetaminophen 650 mg 05/31/19 13:43 Tylenol - PO Q6H PRN MODERATE PAIN Aspirin 81 mg 05/31/19 11:15 06/02/19 09:05 Ecotrin - PO Not Given DAILY TOM Atorvastatin Calcium 20 mg 05/30/19 22:00 06/01/19 21:25 Lipitor - PO 20 mg HS TOM Administration Enoxaparin Sodium 40 mg 05/30/19 10:00 06/02/19 08:59 Lovenox - SQ 40 mg DAILY TOM Administration Famotidine/Sodium Chloride 20 mg in 50 mls @ 100 mls/hr 05/30/19 11:30 09:05 Pepcid 20 Mg Premixed Ivpb - IVPB Not Given BID TOM Sodium Chloride 1,000 mls @ 75 mls/hr 06/01/19 08:15 06/02/19 08:59 1/2 Normal Saline IV 75 mls/hr ASDIR TOM Administration Levetiracetam 500 mg 05/30/19 10:00 06/02/19 09:05 Keppra - PO Not Given BID TOM Ondansetron HCl 4 mg 05/30/19 11:25 Zofran Injection IVPUSH Q6H PRN NAUSEA ASSESSMENT/PLAN: Ms. Blanc is a 64y/o female with history of seizures (last 7 years ago), HTN, anemia, and MVP who presents following multiple witnessed seizures and loss of appetite. #seizure disorder -CT head/ MRI brain negative for acute processes -continue Keppra 500mg BID -neuro following (Dr. Holland) -PT #UTI, resolved -ceftriaxone 1g IV daily x 2 days given -final urine cx result enterococcus 20-30k CFUs #left internal carotid artery stenosis -found on carotid doppler -elevated HDL, normal LDL -ASA 81mg -atorvastatin 20mg #HTN -monitor vitals -currently not on meds DVT Ppx Lovenox 40mg FEN PO fluids monitor labs sodium controlled diet dispo VNS vs home Visit type - Emergency Visit Emergency Visit: Yes ED Registration Date: 05/30/19 Care time: The patient presented to the Emergency Department on the above date and was hospitalized for further evaluation of their emergent condition. - New Patient This patient is new to me today: No - Critical Care Critical Care patient: No - Discharge Referral Referred to [facility] Med P.C.: No ATTENDING PHYSICIAN STATEMENT I saw and evaluated the patient. I reviewed the resident's note and discussed the case with the resident. I agree with the resident's findings and plan as documented. SUBJECTIVE: OBJECTIVE: ASSESSMENT AND PLAN:
--- NOTE | 2019-06-02 19:34 | PN ---
Teaching Attending Note Name of Resident: Beatriz Aguila ATTENDING PHYSICIAN STATEMENT I saw and evaluated the patient. I reviewed the resident's note and discussed the case with the resident. I agree with the resident's findings and plan as documented. SUBJECTIVE: Patient continues to have difficulty with ambulation. OBJECTIVE: Vital Signs Temperature 98.2 F 06/02/19 17:00 Pulse Rate 71 06/02/19 17:00 Respiratory Rate 20 06/02/19 17:00 Blood Pressure 117/63 06/02/19 17:00 O2 Sat by Pulse Oximetry (%) 98 06/02/19 10:00 GENERAL: The patient is awake, alert, and fully oriented, in no acute distress. HEAD: Normal with no signs of trauma. EYES: PERRL, extraocular movements intact, sclera anicteric, conjunctiva clear. ENT: Ears normal, oropharynx clear without exudates, moist mucous membranes. NECK: Trachea midline, full range of motion, supple. LUNGS: Breath sounds equal, clear to auscultation bilaterally, no wheezes, no crackles, no accessory muscle use. HEART: Regular rate and rhythm, S1, S2 without murmur, rub or gallop. ABDOMEN: Soft, NT,ND, normoactive bowel sounds, no guarding, no rebound, no hepatosplenomegaly, no masses. EXTREMITIES: 2+ pulses, warm, well-perfused, no edema. NEUROLOGICAL: Cranial nerves II through XII grossly intact. Normal speech, gait not observed. PSYCH: Normal mood, normal affect. SKIN: Warm, dry, normal turgor, no rashes or lesions noted CBCD WBC 3.6 K/mm3 (4.0-10.0) L 06/02/19 06:50 RBC 3.68 M/mm3 (3.60-5.2) 06/02/19 06:50 Hgb 10.8 GM/dL (10.7-15.3) 06/02/19 06:50 Hct 32.5 % (32.4-45.2) 06/02/19 06:50 MCV 88.4 fl (80-96) 06/02/19 06:50 MCHC 33.2 g/dl (32.0-36.0) 06/02/19 06:50 RDW 14.7 % (11.6-15.6) 06/02/19 06:50 Plt Count 242 K/MM3 (134-434) 06/02/19 06:50 MPV 8.2 fl (7.5-11.1) 06/02/19 06:50 CMP Sodium 144 mmol/L (136-145) 06/02/19 06:50 Potassium 4.1 mmol/L (3.5-5.1) 06/02/19 06:50 Chloride 111 mmol/L (98-107) H 06/02/19 06:50 Carbon Dioxide 28 mmol/L (21-32) 06/02/19 06:50 Anion Gap 4 MMOL/L (8-16) L 06/02/19 06:50 BUN 7.7 mg/dL (7-18) 06/02/19 06:50 Creatinine 0.6 mg/dL (0.55-1.3) 06/02/19 06:50 Random Glucose 75 mg/dL (74-106) 06/02/19 06:50 Calcium 8.4 mg/dL (8.5-10.1) L 06/02/19 06:50 Total Bilirubin 0.4 mg/dL (0.2-1) 06/02/19 06:50 AST 15 U/L (15-37) 06/02/19 06:50 ALT 27 U/L (13-61) 06/02/19 06:50 Alkaline Phosphatase 67 U/L (45-117) 06/02/19 06:50 Total Protein 6.5 g/dl (6.4-8.2) 06/02/19 06:50 Albumin 2.9 g/dl (3.4-5.0) L 06/02/19 06:50 CARDIAC ENZYMES Creatine Kinase 74 U/L (26-192) 05/30/19 03:45 Troponin I < 0.02 ng/ml (0.00-0.05) 05/30/19 03:45 Current Medications Generic Name Dose Route Start Last Admin Trade Name Freq PRN Reason Stop Dose Admin Acetaminophen 650 mg 05/31/19 13:43 Tylenol - PO Q6H PRN MODERATE PAIN Aspirin 81 mg 05/31/19 11:15 06/02/19 09:05 Ecotrin - PO Not Given DAILY TOM Atorvastatin Calcium 20 mg 05/30/19 22:00 06/01/19 21:25 Lipitor - PO 20 mg HS TOM Administration Enoxaparin Sodium 40 mg 05/30/19 10:00 06/02/19 08:59 Lovenox - SQ 40 mg DAILY TOM Administration Famotidine/Sodium Chloride 20 mg in 50 mls @ 100 mls/hr 05/30/19 11:30 09:05 Pepcid 20 Mg Premixed Ivpb - IVPB Not Given BID TOM Levetiracetam 500 mg 05/30/19 10:00 06/02/19 09:05 Keppra - PO Not Given BID TOM Ondansetron HCl 4 mg 05/30/19 11:25 Zofran Injection IVPUSH Q6H PRN NAUSEA Home Medications Medication Instructions Recorded NK [No Known Home Medication] 05/30/19 MRI:NL Microbiology 05/30/19 03:00 Urine - Urine Clean Catch Urine Culture - Final Enterococcus Faecium Strep Agalactiae Group B Carotid duplex: 50-70% stenosis is noted of the proximal left internal carotid artery. ASSESSMENT AND PLAN: Patient is a 64yof with Pmhx of seizures (last 7 years ago), anemia, and MVP who presents to the ED, for having multiple witnessed seizures. #Acute seizure disorder on keppra bid continue, follows up with , CT and MRI of the brain is negative. continue to monitor. #Acute UTI on rocephin continue,continue for now. #left internal carotid artery stenosis 50-70% will place the patient on asa and lipitor 20mg hs continue #HTN mildly elevated will monitor # Difficulty with ambulation around 20 feet, possible rehab , SW is on the case. DVT Ppx: Lovenox 40mg
[2019-06-02] MEDS: ATORVASTATIN CA 20 MG TABLET (FP) PO SCH (21:08)
[2019-06-03 07:12] LABS: BASO % 0.8 % (0-2.0); EOS % 2.8 % (0-4.5); HEMATOCRIT 35.5 % (32.4-45.2); HEMOGLOBIN 11.7 GM/dL (10.7-15.3); MCH 29.2 pg (25.7-33.7); MEAN CELL VOLUME 88.6 fl (80-96); MEAN PLT VOLUME 8.1 fl (7.5-11.1); MONO % 7.1 % (3.8-10.2); NEUT % 46.3 % (42.8-82.8); PLATELET COUNT 254 K/MM3 (134-434); RDW 14.8 % (11.6-15.6); WHITE BLOOD COUNT 4.4 K/mm3 (4.0-10.0)
[2019-06-03 07:37] LABS: ALBUMIN 3.2 g/dl (3.4-5.0); BILIRUBIN,TOTAL 0.5 mg/dL (0.2-1); BLOOD UREA NITROGEN 13.3 mg/dL (7-18); CALCIUM 8.9 mg/dL (8.5-10.1); CREATININE 0.7 mg/dL (0.55-1.3); MAGNESIUM 1.9 mg/dL (1.8-2.4); POTASSIUM 4.3 mmol/L (3.5-5.1); TOT PROT 7.1 g/dl (6.4-8.2)
[2019-06-03] MEDS: ASPIRIN COATED 81 MG TABLET.EC PO SCH (09:57)
[2019-06-03] MEDS: ENOXAPARIN NA (PORCINE) 40 MG/0.4 ML DISP.SYRIN SQ SCH (09:57)
[2019-06-03] MEDS: levETIRAcetam 500 MG TABLET (FP) PO SCH (09:57)
[2019-06-03] MEDS: FAMOTIDINE 20 MG/50 ML IVPB 20 MG/50 ML MG IVPB SCH (09:58)
[2019-06-03 10:03] VITALS: BP 140/78; PULSE 81; TEMP 97.5
--- NOTE | 2019-06-03 12:38 | DS ---
Physical Exam: SUBJECTIVE: Patient seen and examined. She reports b/l lumbar back pain. She also reports continued dizziness associated with medication administration. OBJECTIVE: Vital Signs Period Temp Pulse Resp BP Sys/Tucker Pulse Ox Last 24 Hr 97.5 F-98.2 F 68-81 18-20 117-144/55-92 97 PHYSICAL EXAM GENERAL: The patient is awake, alert, and fully oriented, in no acute distress. HEAD: Normal with no signs of trauma. EYES: PERRL, extraocular movements intact, conjunctiva clear. ENT: Ears normal, nares patent, moist mucous membranes. NECK: Trachea midline, full range of motion. LUNGS: Clear to auscultation bilaterally HEART: Regular rate and rhythm, no murmur ABDOMEN: Soft, nontender, nondistended, normoactive bowel sounds BACK: Bilateral lumbar hypertonicity tender to palpation EXTREMITIES: Warm, well-perfused, no edema. NEUROLOGICAL: Cranial nerves II through XII grossly intact. Normal speech. PSYCH: Normal mood, normal affect. SKIN: Warm, dry, normal turgor, no rashes LABS Laboratory Results - last 24 hr 06/03/19 06/03/19 05:30 05:30 WBC 4.4 RBC 4.00 Hgb 11.7 Hct 35.5 MCV 88.6 MCH 29.2 MCHC 33.0 RDW 14.8 Plt Count 254 MPV 8.1 Absolute Neuts (auto) 2.0 Neutrophils % 46.3 Lymphocytes % 43.0 H Monocytes % 7.1 Eosinophils % 2.8 Basophils % 0.8 Nucleated RBC % 0 Sodium 142 Potassium 4.3 Chloride 108 H Carbon Dioxide 30 Anion Gap 4 L BUN 13.3 Creatinine 0.7 Est GFR (CKD-EPI)AfAm 107.62 Est GFR (CKD-EPI)NonAf 92.86 Random Glucose 73 L Calcium 8.9 Magnesium 1.9 Total Bilirubin 0.5 AST 14 L ALT 25 Alkaline Phosphatase 72 Total Protein 7.1 Albumin 3.2 L HOSPITAL COURSE: Ms. Blanc is a 64y/o female with history of seizures (last 7 years ago, was on keppra afterward but stopped), HTN, anemia, and MVP who presents following multiple witnessed seizures and loss of appetite. CT and MRI were negative for acute processes. Pt was started on Keppra and monitored. No seizure activity occurred. Left internal carotid artery stenosis found on doppler, and pt was started on ASA and atorvastatin 20mg. Her HDL was high and LDL was normal. Pt was normotensive during course. Pt began to complain of MSK lumbar pain. Tylenol was given without much relief. Trial of flexeril was given with improvement. Date of Admission:05/30/19 Date of Discharge: 06/03/19 Minutes to complete discharge: 35 Discharge Summary Problems reviewed: Yes Reason For Visit: CEREBROVASCULAR ACCIDENT (CVA) Current Active Problems Hypercholesteremia (Acute) Left-sided weakness (Acute) Seizures (Acute) UTI (urinary tract infection) (Acute) Condition: Improved - Instructions Diet, Activity, Other Instructions: YOUR VISIT: You were admitted to the hospital after you had multiple seizures at home During testing, it was found that you had plaque buildup in your neck, and you were started on cholesterol medications and will need to follow up with a vascular surgeon for further evaluation. Your symptoms improved and you were stable to be discharged home. MEDICATIONS: Please take the following medications: Keppra 500mg twice a day Atorvastatin 20mg once a day Aspirin 81mg once a day FOLLOW UP: Dr. Womack, primary care, in one week after discharge. Dr. Holland, neurology, in one week after discharge. Dr. Crawford, vascular surgery within one week OTHER INSTRUCTIONS: Return to the emergency room or call 911 if you have a change in mental status, lose consciousness, seizure, chest pain, shortness of breath, vomiting, increased weakness, or leg pain. Referrals: Fred Holland MD [Staff Physician] - 1 Week Artem Crawford DO [Staff Physician] - 1 Week Sarah Womack [Primary Care Provider] - 1 Week Disposition: VNS/HOME HEALTH CARE - Home Medications Comprehensive Discharge Medication List: Ambulatory Orders Aspirin Coated [Ecotrin -] 81 mg PO DAILY #30 tablet.ec 06/03/19 Atorvastatin Ca [Lipitor] 20 mg PO HS #30 tablet 06/03/19 levETIRAcetam [Keppra -] 500 mg PO BID #60 tablet 06/03/19 This patient is new to me today: No Emergency Visit: Yes ED Registration Date: 05/30/19 Care time: The patient presented to the Emergency Department on the above date and was hospitalized for further evaluation of their emergent condition. Critical Care patient: No - Discharge Referral Referred to [facility] No ATTENDING PHYSICIAN STATEMENT I saw and evaluated the patient. I reviewed the resident's note and discussed the case with the resident. I agree with the resident's findings and plan as documented. SUBJECTIVE: OBJECTIVE: ASSESSMENT AND PLAN:
[2019-06-03] MEDS ORDERED: CYCLOBENZAPRINE HCL 5 MG TABLET PO ONE (12:49)
== END 2019-06-03 15:05 | disposition home health service (06) | DRG 68 ==
LOC: JER 01:42 → JERBED 06:25 → J4W 19:56 → JSAMEDAYSX 05-31 15:29 → J4W 05-31 15:31
PROVIDERS: ADMIT Internal Medicine; ATTEND Internal Medicine
DX: I65.22 Occlusion and stenosis of left carotid artery (principal); N39.0 Urinary tract infection, site not specified; G40.901 Epilepsy, unspecified, not intractable, with status epilepticus; I10 Essential (primary) hypertension; I34.1 Nonrheumatic mitral (valve) prolapse; K44.9 Diaphragmatic hernia without obstruction or gangrene; B95.2 Enterococcus as the cause of diseases classified elsewhere; R29.702 NIHSS score 2; D64.9 Anemia, unspecified; R53.1 Weakness; E78.5 Hyperlipidemia, unspecified; M54.5 Low back pain; G83.84 Todd's paralysis (postepileptic); Z91.14 Patient's other noncompliance with medication regimen
CPT/HCPCS: 36415; 70450-TC; 70553-TC; 71045-TC-FY; 80048; 80053; 80061; 80307; 81003; 82465; 82550; 82962; 83718; 83721; 83735; 84443; 84478; 84484; 85025; 85027; 85610; 85730; 86850; 86870; 86900; 86901; 86902; 87077; 87086; 87186; 93005; 93010; 93306-TC; 93880-TC; 97116-GP; 97161-GP; 99285-25; A9579